=== PATIENT | male | born 1955 | race Caucasian/White ===

== ENCOUNTER 2024-04-02 23:32 | Inpatient (IN) | payer BC, MEDICARE ==
[~2024-04-02] VITALS: Ht 175.3 cm; Wt 109.7 kg
[~2024-04-02 23:32] MED LIST: ASPI1TAB20 PO; BENA20TA12 PO; CARV3.1240 PO; FLUT500M2 INH; METF-370 PO; PANT40TA2 PO; SITA100T7 PO
[2024-04-03] VITALS (23 sets, daily range): BP systolic 103–125; BP diastolic 41–80; PULSE 71–105; RESP 16–30; TEMP 97.7–98.6; O2SAT 93–100
[2024-04-03 00:03] LABS: Basophils # (auto) 0.1 10 ^3/uL (0-0.2); Eosinophils # (auto) 0.2 10 ^3/uL (0-0.8); Eosinophils % (auto) 1.7 % (0.0-7.0); Neutrophils # (auto) 6.5 10 ^3/uL (1.6-8.6); Red Blood Cells 4.11 10^6/uL (4.5-5.90)
[2024-04-03 00:04] LABS: Basophils % (auto) 1.5 % (0.0-2.0); Lymphocytes # (auto) 1.2 10 ^3/uL (0.4-5.4); Lymphocytes % (auto) 13.9 % (10.0-50.0); Mean Corpuscular Hemoglobin 16.5 pg (28.0-32.0); Mean Corpuscular Hgb Conc. 29.5 g/dL (32.0-36.0); Mean Corpuscular Volume 56.1 fL (80.0-100.0); Monocytes # (auto) 0.9 10 ^3/uL (0-1.3); Monocytes % (auto) 10.5 % (0.0-12.0); Neutrophils % (auto) 72.4 % (37.0-80.0); Nucleated Red Blood Cells % 0.1 %; Platelet Count (auto) 274 10^3/uL (140-450)
[2024-04-03 00:06] LABS: Red Cell Distribution Width 20.8 % (11.8-14.3)
[2024-04-03 00:07] LABS: Hemoglobin 6.8 g/dL (13.5-17.5)
--- NOTE | 2024-04-03 00:07 | ED.PDOC ---
History of Present Illness HPI Comments 68 y/o M is BIBA for c/o shortness of breath and wheezing for the past 3x days, today. Per EMS report, patient endorses on unprovoked onset of progressively worsening symptoms. He was noted to have been found with wheezing to his bilateral lower holley and was given DuoNeb breathing treatment en route. Ambreen corrales has a history of AFIB, COPD, DMII, HTN, MRSA, obesity, and sepsis with pneumonia secondary to methicillin-resistant Staphylococcus aureus. He denies having any chest pain, cough, fever, chills, or other associated symptoms or modifiers at this time. Chief Complaint: Shortness of Breath Time Seen by MD: 23:45 Reviewed Notes: Nurses Notes, Enterprise Services Manager Notes, Medications, Allergies Allergies: Coded Allergies: Tetracycline (Unverified Allergy, Unknown, 05/18/15) Home Meds Reported Medications Fluticasone-Salmeterol (Advair Diskus 500/50) 1 Puff Ih, 1 PUFF INH BID, #1 INHALER 5 Refills 05/18/15 Sitagliptin Phosphate (Januvia) 100 Mg Tab, 1 TAB PO DAILY, #30 TAB 5 Refills 05/18/15 Pantoprazole Sodium Sesquihydr (Protonix) 40 Mg Tab, 40 MG PO DAILY, #30 TAB 05/18/15 Metformin Hydrochloride (Metformin Hcl) 500 Mg Tab, 1 TAB PO BID, #60 TAB 3 Refills 05/18/15 Carvedilol (Carvedilol) 3.125 Mg Tab, 1 TAB PO BID, #60 TAB 3 Refills 05/18/15 Benazepril & Hydrochlorothiazi (Benazepril Hcl/Hydrochlor) 1 Tab Tab, 1 TAB PO DAILY, #30 TAB 5 Refills 05/18/15 Aspirin (Aspir-81) 81 Mg Tab, 1 TAB PO DAILY, #30 TAB 5 Refills 05/18/15 Information Source: Patient, Emergency Med Personnel Mode of Arrival: EMS Severity: Moderate Timing: Days Duration: Since onset Prehospital treatment: 12 Lead EKG, 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 Obesity. Hyponatremia. MRSA. Surgical History (Other): surgery on right hip and 1st digit on left foot Family History Family History: Unknown Social History Smoker: Non-Smoker Alcohol: Denies ETOH Use Drugs: Denies Drug Use Lives In: Home Respiratory: reports: shortness of breath, wheezing All Other Systems: Reviewed and Negative (negative unless otherwise stated above or in HPI) Physical Exam General Appearance: Mild Distress, Obese HEENT: Normal ENT Inspection, Pharynx Normal, TMs Normal Neck: Full Range of Motion, Non-Tender, Normal, Normal Inspection Respiratory: Chest Non-Tender, Lungs Clear, No Accessory Muscle Use, Normal Breath Sounds, Respiratory Distress Cardiovascular: No Edema, No JVD, No Murmur, No Gallop, Normal Peripheral Pulses, Regular Rate/Rhythm Breast Exam: Deferred Gastrointestinal: No Organomegaly, Non Tender, No Pulsatile Mass, Normal Bowel Sounds, Soft Genitalia: Deferred Pelvic: Deferred Rectal: Deferred Extremities: No calf tenderness, Normal capillary refill, Normal inspection, Normal range of motion, Non-tender, No pedal edema Musculoskeletal : Apperance: Normal Neurologic: Alert, 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 Was a procedure done?: No EKG EKG : Pulse Rate (adult): 73 Stendal: Normal Cardiac Rhythm: Afib Block: None Hypertrophy: None ST: Normal Differential Dx Considerations may include: URI, viral syndrome, PE, pleural effusion, COPD exacerbation X-Ray, Labs, Meds, VS Vital Signs Date Time Temp Pulse Resp B/P (MAP) Pulse Ox O2 Delivery O2 Flow Rate FiO2 04/03/24 00:56 98.6 96 22 110/53 (72) 93 98.6 04/03/24 00:08 16 98 Nasal Cannula* 2 28 04/03/24 00:07 73 04/02/24 23:48 98.3 72 18 123/70 (87) 100 04/02/24 23:35 73 Lab Test 04/02/24 23:40 Range/Units White Blood Count 9.0 4.4-10.8 10^3/uL Red Blood Count 4.11 L 4.5-5.90 10^6/uL Hemoglobin 6.8 *L 13.5-17.5 g/dL Hematocrit 23.0 L 41.0-53.0 % Mean Corpuscular Volume 56.1 L 80.0-100.0 fL Mean Corpuscular Hemoglobin 16.5 L 28.0-32.0 pg Mean Corpuscular Hemoglobin Concent 29.5 L 32.0-36.0 g/dL Red Cell Distribution Width 20.8 H 11.8-14.3 % Platelet Count 274 140-450 10^3/uL Mean Platelet Volume 8.2 6.9-10.8 fL Neutrophils (%) (Auto) 72.4 37.0-80.0 % Lymphocytes (%) (Auto) 13.9 10.0-50.0 % Monocytes (%) (Auto) 10.5 0.0-12.0 % Eosinophils (%) (Auto) 1.7 0.0-7.0 % Basophils (%) (Auto) 1.5 0.0-2.0 % Neutrophils # (Auto) 6.5 1.6-8.6 10 ^3/uL Lymphocytes # (Auto) 1.2 0.4-5.4 10 ^3/uL Monocytes # (Auto) 0.9 0-1.3 10 ^3/uL Eosinophils # (Auto) 0.2 0-0.8 10 ^3/uL Basophils # (Auto) 0.1 0-0.2 10 ^3/uL Nucleated Red Blood Cells 0.1 % Platelet Estimate Adequate Hypochromasia (manual) Marked Poikilocytosis (manual) Slight Anisocytosis (manual) Slight Microcytosis Marked Target Cells Few Ovalocytes Few Sodium Level 132 L 136-145 mmol/L Potassium Level 4.6 3.5-5.1 mmol/L Chloride Level 101 98-107 mmol/L Carbon Dioxide Level 24 20-31 mmol/L Anion Gap 7 5-15 Blood Urea Nitrogen 20 9-23 mg/dL Creatinine 1.19 0.700-1.30 mg/dL Glomerular Filtration Rate Calc 66 >90 mL/min BUN/Creatinine Ratio 16.8 10.0-20.0 Serum Glucose 128 H 74-106 mg/dL Calcium Level 9.3 8.7-10.4 mg/dL Total Bilirubin 0.9 0.2-1.0 mg/dL Aspartate Amino Transferase (AST) < 8 L 13-40 U/L Alanine Aminotransferase (ALT) 11 7-40 U/L Alkaline Phosphatase 67 46-116 U/L Troponin I High Sensitivity < 3 L </=54 ng/L B-Type Natriuretic Peptide 232.88 0-100 pg/mL Total Protein 6.5 5.7-8.2 g/dL Albumin 4.3 3.2-4.8 g/dL Current Medications Medications (Trade) Dose Ordered Sig/Héctor Route Start Time Stop Time Status Last Admin Albuterol (Ventolin Medneb) 5 mg ONCE ONCE NEB 04/03/24 00:00 04/03/24 00:01 DC 04/03/24 00:08 Ipratropium [place] (Atrovent Medneb) 0.5 mg ONCE ONCE NEB 04/03/24 00:00 04/03/24 00:01 DC 04/03/24 00:08 Prednisone 40 mg ONCE ONCE PO 04/03/24 00:00 04/03/24 00:01 DC 04/03/24 00:59 Time of 1ST Reevaluation: 00:15 Reevaluation 1ST: Unchanged Time of 2ND Reevaluation: 01:06 Reevaluation 2ND: Unchanged Patient Education/Counseling: Diagnosis, Treatment Family Education/Counseling: No Family Present Departure 1 Departure Time of Disposition: 01:06 Impression: Primary Impression: COPD exacerbation Additional Impressions: Lung mass Symptomatic anemia Atrial fibrillation Disposition: ADMITTED INPATIENT Admit to: [facility] Condition: Guarded Discharged With: Self Comments Shortness of Breath with Severe Anemia Chief Complaint: Shortness of breath History of Present Illness: 68-year-old male with history of COPD and atrial fibrillation presents via EMS with complaints of shortness of breath. Patient is currently only on aspirin for his atrial fibrillation. Initial evaluation revealed wheezing on examination, and patient received a breathing treatment with partial improvement. Laboratory studies were notable for severe anemia with hemoglobin of 6.8 g/dL and hematocrit of 23%. Of note, patient has a previous history of MRSA pneumonia. Review of Systems: Respiratory: Positive for shortness of breath and wheezing All other systems reviewed and negative Medications: Aspirin (dosage not specified) Allergies: No known allergies documented Past Medical History: 1. Chronic Obstructive Pulmonary Disease (COPD) 2. Atrial Fibrillation 3. Previous MRSA Pneumonia Physical Exam: Respiratory: Wheezing noted on examination Lab Results: CBC: - Hemoglobin: 6.8 g/dL (Critical) - Hematocrit: 23% (Critical) Other Studies: - Troponin: Normal - BNP: Normal Imaging and Other Relevant Results: No imaging results documented Medical Decision Making: Summary Statement: 68-year-old male with COPD and atrial fibrillation presenting with shortness of breath, found to have severe anemia requiring admission. Problem List: 1. Severe anemia (Hgb 6.8) 2. Acute shortness of breath with wheezing 3. History of MRSA pneumonia 4. COPD 5. Atrial fibrillation on aspirin only Differential Diagnosis: 1. Acute blood loss anemia 2. COPD exacerbation 3. Community-acquired pneumonia 4. Healthcare-associated pneumonia 5. Acute coronary syndrome ED Course: Patient received breathing treatment with partial improvement. Labs revealed severe anemia. After shared decision-making discussion, patient agreed to hospital admission. Plan for blood transfusion and empiric antibiotic coverage with Rocephin and azithromycin initiated. Assessment and Plan: 1. Severe Anemia (Hgb 6.8, Hct 23%) - Admit to hospital for further evaluation and management - Will require blood transfusion - Further workup needed to determine etiology 2. Acute Shortness of Breath/Possible Pneumonia - Started on IV Rocephin and azithromycin given history of MRSA pneumonia - Continue bronchodilator treatments as needed 3. COPD - Continue home medications - Monitor oxygen requirements 4. Atrial Fibrillation - Continue aspirin - Will need evaluation of anticoagulation strategy during admission Billing Information: ICD-10: D64.9 - Anemia, unspecified ICD-10: R06.02 - Shortness of breath ICD-10: J44.1 - COPD with acute exacerbation ICD-10: I48.91 - Unspecified atrial fibrillation Critical Care Note Critical Care Time?: Yes (35 min-critical care time only) Critical care comment: Total critical care time: Approximately 36 minutes Due to a high probability of clinically significant, life threatening deterioration, the patient required my highest level of preparedness to intervene emergently and I personally spent this critical care time directly and personally managing the patient. This critical care time included obtaining a history; examining the patient; pulse oximetry; ordering and review of studies; arranging urgent treatment with development of a management plan; evaluation of patient's response to treatment; frequent reassessment; and, discussions with other providers. This critical care time was performed to assess and manage the high probability of imminent, life-threatening deterioration that could result in multi-organ failure. It was exclusive of separately billable procedures and treating other patients. Stability Stability form required: No Heart Score Heart Score: Heart Score Response (Comments) Value History Moderate Suspicious 1 EKG Repolarization Disturb 1 Age >65 2 Risk Factors >3 or Hx ASHD 2 Troponin Normal limit 0 Total 6 I personally scribed for PERRY APONTE MD ([email or web address]) on 04/03/24 at 00:07. Electronically submitted by Armando Sandoval [email or web address]). PERRY APONTE MD Apr 03, 2024 00:07
[2024-04-03] MEDS: ALBUTEROL SULF 2.5 MG/0.5ML(0.5%) NEB SOLN NEB ONE (00:08)
[2024-04-03] MEDS: IPRATROPIUM BROM 0.5 MG/2.5ML INH SOL NEB ONE (00:08)
[2024-04-03 00:21] LABS: Alanine Aminotransferase 11 U/L (7-40); Albumin 4.3 g/dL (3.2-4.8); Alkaline Phosphatase 67 U/L (46-116); Anion Gap 7 (5-15); BUN/Creatinine Ratio 16.8 (10.0-20.0); Bilirubin, Total 0.9 mg/dL (0.2-1.0); Blood Urea Nitrogen 20 mg/dL (9-23); Calcium 9.3 mg/dL (8.7-10.4); Carbon Dioxide 24 mmol/L (20-31); Chloride 101 mmol/L (98-107); Potassium 4.6 mmol/L (3.5-5.1)
[2024-04-03 00:22] LABS: Total Protein 6.5 g/dL (5.7-8.2)
[2024-04-03 00:23] LABS: Aspartate Aminotransferase < 8 U/L (13-40); Glucose 128 mg/dL (74-106); Sodium 132 mmol/L (136-145)
[2024-04-03 00:54] LABS: Anisocytosis Slight; Hypochromia Marked; Ovalocytes FEW; Platelet Estimate Adequate; Target Cell FEW
[2024-04-03] MEDS: predniSONE 20 MG TAB PO ONE (00:59)
--- NOTE | 2024-04-03 01:14 | DVH ---
CHEST RADIOGRAPH Indication: SOB Technique: Single frontal view of the chest was obtained COMPARISON: None FINDINGS: Lines and Tubes: None Lungs: Clear Pleura: No effusion. No pneumothorax. Cardiomediastinal contours: Unremarkable Bones: Unremarkable IMPRESSION: 1. No acute disease.
[2024-04-03] MEDS: cefTRIAXone 1GM/50ML D5W 50 ML IV ONE (01:27)
[2024-04-03] MEDS: AZITHROMYCIN 500MG/ 250ML 250 ML IV ONE (01:55)
[2024-04-03] MEDS ORDERED: MORPHINE SULFATE INJ 2 MG/ml SYRG IV PRN (02:00)
[2024-04-03] MEDS ORDERED: NITROGLYCERIN 0.4 MG SL TAB SL PRN (02:00)
[2024-04-03] MEDS ORDERED: DEXTROSE (50%) 50ML SYRG IV PRN (02:00)
[2024-04-03 02:31] LABS: Folate (Folic Acid) 13.19 ng/mL (>5.38)
[2024-04-03 02:32] LABS: Ferritin 3.1 ng/mL (22-322)
[2024-04-03 02:48] LABS: % Iron Saturation 3.6 % (20-55)
[2024-04-03 03:03] LABS: Urine Bacteria None Seen /hpf (None Seen)
[2024-04-03 03:22] LABS: Urine Blood Negative /uL (Negative); Urine Clarity Clear (Clear); Urine Color Light-Yellow (Yellow); Urine Protein, UAD Negative (Negative); Urine Specific Gravity 1.015 (1.001-1.035); Urine Squamous Epithelial Cell FEW /hpf (<5); Urine Urobilinogen Normal (Negative); Urine WBC 1 /HPF (0-3); Urine pH 5.5 (5.0-9.0)
[2024-04-03 04:22] LABS: Opiate Scree,Urine Neg (NEGATIVE)
[2024-04-03] MEDS: IRON SUCROSE COMPLEX 110 ML IV SCH (04:26)
[2024-04-03 04:31] LABS: Basophils # (auto) 0 10 ^3/uL (0-0.2); Basophils % (auto) 0.5 % (0.0-2.0); Eosinophils # (auto) 0 10 ^3/uL (0-0.8); Monocytes # (auto) 0.2 10 ^3/uL (0-1.3); Neutrophils # (auto) 7.6 10 ^3/uL (1.6-8.6)
[2024-04-03 04:33] LABS: Alanine Aminotransferase 13 U/L (7-40); Alkaline Phosphatase 72 U/L (46-116); Anion Gap 9 (5-15); Calcium 9.4 mg/dL (8.7-10.4); Carbon Dioxide 23 mmol/L (20-31); Chloride 98 mmol/L (98-107)
[2024-04-03 04:34] LABS: Albumin 4.5 g/dL (3.2-4.8); Total Protein 6.8 g/dL (5.7-8.2)
[2024-04-03 04:37] LABS: Eosinophils % (auto) 0.5 % (0.0-7.0); Hematocrit 24.3 % (41.0-53.0); Hemoglobin 7.2 g/dL (13.5-17.5); Lymphocytes # (auto) 0.6 10 ^3/uL (0.4-5.4); Lymphocytes % (auto) 7.4 % (10.0-50.0); Mean Corpuscular Hemoglobin 16.6 pg (28.0-32.0); Mean Corpuscular Hgb Conc. 29.5 g/dL (32.0-36.0); Mean Corpuscular Volume 56.4 fL (80.0-100.0); Monocytes % (auto) 2.6 % (0.0-12.0); Platelet Count (auto) 301 10^3/uL (140-450); Red Blood Cells 4.32 10^6/uL (4.5-5.90); White Blood Cell 8.6 10^3/uL (4.4-10.8)
[2024-04-03 04:38] LABS: Red Cell Distribution Width 20.6 % (11.8-14.3)
[2024-04-03 04:49] LABS: INR 1.24 (0.9-1.15); Prothrombin Time 12.9 sec (9.3-11.8)
[2024-04-03 04:52] LABS: Aspartate Aminotransferase < 8 U/L (13-40); Glucose 184 mg/dL (74-106); Sodium 130 mmol/L (136-145)
[2024-04-03 04:53] LABS: Amphetamine Screen, Urine Neg (NEGATIVE); Barbiturate Scree,Urine Neg (NEGATIVE); Benzodiazephine Screen, Urine Neg (NEGATIVE); Cannabinoid Screen, Urine Neg (NEGATIVE); Cocaine Screen, Urine Neg (NEGATIVE); Phencyclidine Screen, Urine Neg (NEGATIVE)
--- NOTE | 2024-04-03 05:03 | DVHHPRES ---
History of Present Illness Resident Creating Document: LISY SANCHEZ RESIDENT Reason for Visit: acute respiratory failure and anemia History of Present Illness 68-year-old male with past medical history AFib COPD diabetes mellitus type 2 hypertension came for a shortness of breath and cough with greenish sputum for 3 days. Patient states using oxygen 2 L at home but due to the shortness of breath he has been using his oxygen 4 L yesterday. Patient was also found wheezing at admission. Patient denies any weight loss and bleeding in any other symptoms Home meds Advair Diskus sitagliptin pantoprazole metformin carvedilol benazepril plus hydrochlorothiazide aspirin Patient stated being heavy smoker but quit 7 years ago, denies other drugs states a drink once in a while Review of Systems Constitutional: Yes: Weakness; No: Fever, Chills, Sweats, Malaise, Other Eyes: No: Pain, Vision change, Conjunctivae inflammation, Eyelid inflammation, Other, Redness ENT: No: Ear pain, Ear discharge, Nose pain, Nose discharge, Nose congestion, Mouth pain, Mouth swelling, Throat pain, Throat swelling, Other Respiratory: Cough, Shortness of breath, Wheezing, Sputum; No: Dry, SOB with excertion, Hemoptysis, Pleuritic Pain, Wheezing, Other Cardiovascular: No: Chest Pain, Palpitations, Orthopnea, Paroxysmal Noc. Dyspnea, Edema, Lt Headedness, Other Gastrointestinal: No: Nausea, Vomiting, Abdominal Pain, Diarrhea, Constipation, Melena, Hematochezia, Other Genitourinary: No Dysuria, No Frequency, No Incontinence, No Hematuria, No Retention, No Other Musculoskeletal: No: other, neck pain, shoulder pain, arm pain, back pain, hand pain, leg pain, foot pain Skin: No: Rash, Lesions, Jaundice, Bruising, Other Neurological: No: Weakness, Numbness, Incoordination, Change in speech, Confusion, Seizures, Other Allergies: Coded Allergies: Tetracycline (Unverified Allergy, Unknown, 05/18/15) Medications Current Medications Medications Dose Ordered Sig/Héctor Route Start Time Stop Time Status Last Admin Dose Admin Nitroglycerin 0.4 mg Q5MINP PRN SL 04/03/24 02:00 Morphine Sulfate 2 mg Q30M PRN IV 04/03/24 02:00 Azithromycin 250 ml @ 125 mls/hr DAILY IV 04/03/24 10:00 UNV Ceftriaxone Sodium 50 ml @ 100 mls/hr DAILY@0100 IV 04/04/24 01:00 Prednisone 40 mg DAILY PO 04/03/24 10:00 Albuterol 5 mg TIDPRN PRN NEB 04/03/24 06:00 Ipratropium [place] 0.5 mg TIDPRN PRN NEB 04/03/24 06:00 Carvedilol 3.125 mg BID PO 04/03/24 10:00 Diagnostic Test (Pha) 1 strip ACHS 04/03/24 07:00 Insulin Human Regular ACHS SC 04/03/24 07:00 Dextrose 50 ml UD PRN IV 04/03/24 02:00 Iron Sucrose 110 ml @ 110 mls/hr DAILY@1200 IV 04/03/24 03:30 04/06/24 12:59 Exam Vital Signs Vital Signs Date Time Temp Pulse Resp B/P (MAP) Pulse Ox O2 Delivery O2 Flow Rate FiO2 04/03/24 03:00 98.6 85 22 110/53 94 2.0 28 98.6 04/03/24 01:01 Nasal Cannula* General Appearance: Alert, Oriented X3 HEENT: Atraumatic, Other (pale) Respiratory: Clear to auscultation, Normal air movement Cardiovascular: Other (irregular rate ) Abdominal: Normal bowel sounds, Soft, Other (rectal exam, no stool in the recatl vault, no bleeding ) Extremities: No clubbing, No cyanosis Skin: No rashes, No breakdown Neuro: Normal gait, Normal speech Psych/Mental Status: Mental status NL, Mood NL Labs/Xrays Labs Test 04/03/24 03:57 04/03/24 03:00 04/03/24 01:24 04/02/24 23:40 Range/Units White Blood Count 8.6 4.4-10.8 10^3/uL Red Blood Count 4.32 L 4.5-5.90 10^6/uL Hemoglobin 7.2 L 13.5-17.5 g/dL Hematocrit 24.3 L 41.0-53.0 % Mean Corpuscular Volume 56.4 L 80.0-100.0 fL Mean Corpuscular Hemoglobin 16.6 L 28.0-32.0 pg Mean Corpuscular Hemoglobin Concent 29.5 L 32.0-36.0 g/dL Red Cell Distribution Width 20.6 H 11.8-14.3 % Platelet Count 301 140-450 10^3/uL Mean Platelet Volume 8.4 6.9-10.8 fL Neutrophils (%) (Auto) 89.0 H 37.0-80.0 % Lymphocytes (%) (Auto) 7.4 L 10.0-50.0 % Monocytes (%) (Auto) 2.6 0.0-12.0 % Eosinophils (%) (Auto) 0.5 0.0-7.0 % Basophils (%) (Auto) 0.5 0.0-2.0 % Neutrophils # (Auto) 7.6 1.6-8.6 10 ^3/uL Lymphocytes # (Auto) 0.6 0.4-5.4 10 ^3/uL Monocytes # (Auto) 0.2 0-1.3 10 ^3/uL Eosinophils # (Auto) 0 0-0.8 10 ^3/uL Basophils # (Auto) 0 0-0.2 10 ^3/uL Nucleated Red Blood Cells 0.0 % Reticulocyte Count (auto) 1.82 H 0.5-1.5 % Urine Color Light-yellow Yellow Urine Clarity Clear Clear Urine pH 5.5 5.0-9.0 Urine Specific [place] 1.015 1.001-1.035 Urine Protein Negative Negative Urine Ketones Negative Negative Urine Blood Negative Negative /uL Urine Nitrite Negative Negative Urine Bilirubin Negative Negative Urine Urobilinogen Normal Negative mg/dL Urine Leukocyte Esterase Negative Negative /uL Urine RBC 1 0 - 3 /hpf Urine Microscopic WBC 1 0-3 /HPF Urine Squamous Epithelial Cells Few <5 /hpf Urine Bacteria None seen None Seen /hpf Urine Glucose Normal Normal mg/dL Lactic Acid Level 1.2 0.4-2.0 mmol/L Iron Level 15 L 65-175 ug/dL Total Iron Binding Capacity 421 250-425 ug/dL Percent Iron Saturation 3.6 L 20-55 % Ferritin 3.1 L 22-322 ng/mL Lactate Dehydrogenase 165 120-246 U/L Vitamin B12 Level 494 211-911 pg/mL Folic Acid 13.19 >5.38 ng/mL Platelet Estimate Adequate Hypochromasia (manual) Marked Poikilocytosis (manual) Slight Anisocytosis (manual) Slight Microcytosis Marked Target Cells Few Ovalocytes Few Troponin I High Sensitivity < 3 L </=54 ng/L B-Type Natriuretic Peptide 232.88 0-100 pg/mL Assessment/Plan Assessment/Plan #Acute respiratory failure: home 2 LT today 4 LT #Severe anemia #Rule out bleeding #Iron deficiency anemia #Possible COPD exacerbation #HTN #AFIB with normal RVR Chadvsc3 #DM type 2 #GARRISON? #Mild Hyperkalemia #Mild Hyponatremia Admit Telemetry 1 RBC Iron IV Ceftriaxone + azithromycin Breathing treatments PRN ECHO ordered Hold on anticoagulation for now due to anemia Mild sliding scale Case discussed with Dr Eli Time spent on care 23 min Plan discussed with: Patient, Other (rn) My Orders Orders - LISY SANCHEZ RESIDENT Procedure Category Date Status Time Type And Screen BBK 04/03/24 In Process 01:39 Admit ADMIT 04/03/24 Transmitted 01:46 Nitroglycerin PHA 04/03/24 In Process Sublingual (Ntrostat 02:00 Morphine Sulfate PHA 04/03/24 In Process Injection 02:00 Oxygen By Nasal RT 04/03/24 Transmitted Cannula 01:46 Stat Ekg For Chest COY 04/03/24 In Process Pain 01:46 Notify Md Of Changes COY 04/03/24 In Process From Base 01:46 Lead Network Architect For COY 04/03/24 In Process 24 Hours 01:46 Emergency Dysrhythmia COY 04/03/24 In Process Protocol 01:46 Rhythm Strips Once COY 04/03/24 In Process Every Shift 01:46 Pulse Ox Cont Per Day RT 04/03/24 Logged 01:46 Prothrombin Time W/ LAB 04/03/24 In Process INR 04:00 Fibrinogen LAB 04/03/24 In Process 04:00 Vital Signs COY 04/03/24 In Process 01:46 Administer Blood COY 04/03/24 In Process Products 01:46 Azithromycin 500mg/ PHA 04/03/24 Pending 250ml (Zithromax 50 10:00 Prednisone Tablet PHA 04/03/24 In Process 10:00 Albuterol Medneb PHA 04/03/24 In Process (Ventolin Medneb) 06:00 Ipratropium Medneb PHA 04/03/24 In Process (Atrovent Medneb) 06:00 Mrsa Screen DELBERT 04/03/24 Logged 01:51 Consistent DIET 04/03/24 Transmitted Carb(Ccho)Diabetes Breakfast Carvedilol Tablet PHA 04/03/24 In Process (Coreg Tablet) 10:00 Glucose Blood PHA 04/03/24 In Process (Accu-Chek Comfort 07:00 Insulin R (Human) PHA 04/03/24 In Process (Insulin R) 07:00 Dextrose 50% Syringe PHA 04/03/24 In Process 02:00 Stool Occult Blood LAB 04/03/24 Logged 02:02 Echo 2d Mode Cardiac US 04/03/24 Logged DOP 02:02 Ceftriaxone 1gm/50ml PHA 04/04/24 In Process D5w (Rocephin) 01:00 Iron Sucrose Complex PHA 04/03/24 In Process (Venofer) 03:30 Thyroid Stimulating LAB 04/03/24 In Process Hormone 03:25 Hemoglobin A1c LAB 04/03/24 In Process 03:25 Comprehensive LAB 04/03/24 In Process Metabolic Panel 03:25 Drug Screen LAB 04/03/24 In Process 03:25 Covid19 Antigen Jessica LAB 04/03/24 Logged Rapid Influenza A&B LAB 04/03/24 Logged 03:25 Date of Service: Apr 03, 2024 Billing Provider: TRACE ELI MD Common Visit Codes: [id number] INP/OBS CARE (HIGH) Secondary Visit Codes: [id number] CARE PLAN 30 MINUTES LISY SANCHEZ RESIDENT Apr 03, 2024 05:03 TRACE ELI MD Apr 03, 2024 19:59
[2024-04-03] MEDS: IPRATROPIUM BROM 0.5 MG/2.5ML INH SOL NEB PRN (05:31)
[2024-04-03] MEDS: ALBUTEROL SULF 2.5 MG/0.5ML(0.5%) NEB SOLN NEB PRN (05:31)
--- NOTE | 2024-04-03 06:44 | ECG ---
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
[2024-04-03 06:56] LABS: BUN/Creatinine Ratio 16.2 (10.0-20.0); Blood Urea Nitrogen 21 mg/dL (9-23)
[2024-04-03] MEDS: InsuLIN REG 1unit/0.01ml Soln (100units/ml) SC SCH (06:56)
[2024-04-03] MEDS: ACCU-CHEK COMFORT CURVE STRIP VI SCH (06:58)
[2024-04-03 07:58] LABS: COVID19 ANTIGEN SOFIA FIA NEGATIVE (NEGATIVE)
[2024-04-03 08:11] LABS: Rapid Influenza B Negative (Negative)
[2024-04-03 08:12] LABS: Rapid Influenza A Positive (Negative)
[2024-04-03] MEDS: predniSONE 20 MG TAB PO SCH (10:16)
[2024-04-03] MEDS: AZITHROMYCIN 500MG/ 250ML 250 ML IV SCH (10:19)
[2024-04-03] MEDS: CARVEDILOL 3.125 MG TAB PO SCH (10:21)
--- NOTE | 2024-04-03 12:41 | DVH ---
Procedure: CT CHEST WITHOUT CONTRAST Reason for study/Clinical History: SOB Comparison Study: None available at time of dictation. Exam Date: 04/03/2024 10:56 AM TECHNIQUE: Multidetector CT of the chest was performed from the lung apices to the upper abdomen with out the use of intravenous contract. Axial, coronal and sagittal multiplanar reformats were performed . Radiation Dose Information: CT Dose: CTDI volume is 25.32 mGy. Dose-length product is 940.67 mGy*cm The dose indicators for CT are the volume Computed Tomography (CT) Dose Index (CTDIvol) and the Dose Length Product (DLP), and are measured in units of mGy and mGy-cm, respectively. These indicators are not patient dose, but values generated from the CT scanner acquisition factors. The report includes radiation exposure data for exposures received during this examination. FINDINGS: Lower neck: Normal thyroid. Lungs: No focal consolidation, pleural effusion or pneumothorax. Heart/Vascular Structures: Cardiomegaly. Coronary artery calcifications. Vascular calcifications of t he aorta. Lymph Nodes: No adenopathy Pleura: No pleural effusion or significant pneumothorax. Musculoskeletal: No acute osseous abnormality. Degenerative changes of the spine. Soft tissues: Normal. Upper abdomen: Limited portions of the upper abdomen are unremarkable. IMPRESSION: No acute intrathoracic abnormality. Radiation optimization: All CT scans at this facility use at least one of these dose optimization kedar hniques: automated exposure control mA and/or kV adjustment per patient size (includes targeted exam s where dose is matched to clinical indication) or iterative reconstruction.
--- NOTE | 2024-04-03 16:13 | DVHPNRES ---
Progress Note Date Seen: Apr 03, 2024 Resident Creating Document: MIKY COATS RESIDENT Medical Necessity Reason Pt with a Central, PICC or Fol: No Subjective Review of Systems Patient is a 68-year-old male with past medical history of COPD on home oxygen 2 L, atrial fibrillation, diabetes, hypertension, questionable CHF, who comes in due to shortness of breath that has been ongoing for the last 3 days. According to the patient, yesterday all day he experienced dyspnea, he tried using his nebulizer and home oxygen, however, did not help. Patient notes he had worsening shortness of breath and orthopnea which is what prompted this visit to the hospital. Patient also notes having increasing cough productive of yellowish sputum. Per patient he was treated for pneumonia in January and also has a history of MRSA pneumonia 6 years ago. In the ER patient was noted to have a hemoglobin of 6.8. Patient received 1 PRBC transfusion. Patient [place] positive for influenza B. Past surgical history: Right hip replacement surgery Social & Personal history: Lives with . Quit smoking 7 years ago, prior to that was smoking 2 packs per day for 40 years. Drinks alcohol once or twice per week, remote history of heavy alcohol use. Denies using any drugs. Allergies: Patient seen and examined at bedside. Patient is alert and oriented to time, place person and responding to all questions. General: Fatigue Eyes: No Pain, No Vision change, No Conjunctivae inflammation, No Eyelid inflammation, No Other, No Redness ENT: No Ear pain, No Ear discharge, No Nose pain, No Nose discharge, No Nose congestion, No Mouth pain, No Mouth swelling, No Throat pain, No Throat swelling, No Other Cardiovascular: No Chest Pain, No Palpitations, No Orthopnea, No Paroxysmal No Dyspnea, No Edema, No Lt Headedness, No Other Respiratory: Productive Cough, No Dry, Shortness of breath, SOB with exertion, No Wheezing, No Hemoptysis, No Pleuritic Pain, No Sputum, No Other Gastrointestinal: No Nausea, No Vomiting, No Abdominal Pain, No Diarrhea, No Constipation, No Melena, No Hematochezia, No Other Genitourinary: No Dysuria, No Frequency, No Incontinence, No Hematuria, No Retention, No Other Musculoskeletal: No other, No neck pain, No shoulder pain, No arm pain, No back pain, No hand pain, No leg pain, No foot pain Skin: No Rash, No Lesions, No Jaundice, No Bruising, No Other Objective vital signs Vital Sign Date Time Temp Pulse Resp B/P (MAP) Pulse Ox O2 Delivery O2 Flow Rate FiO2 04/03/24 15:13 105 22 122/66 (84) 96 04/03/24 09:16 Nasal Cannula* 2 28 04/03/24 09:15 97.9 97.9 Total Intake and Output 04/02/24 04/02/24 04/03/24 15:00 23:00 07:00 Intake Total 600 ml Output Total 0 ml Balance 600 ml medications Current Medications Medications Dose Ordered Sig/Héctor Route Start Time Stop Time Status Last Admin Dose Admin Nitroglycerin 0.4 mg Q5MINP PRN SL 04/03/24 02:00 Morphine Sulfate 2 mg Q30M PRN IV 04/03/24 02:00 Azithromycin 250 ml @ 125 mls/hr DAILY IV 04/03/24 10:00 04/03/24 10:19 125 MLS/HR Ceftriaxone Sodium 50 ml @ 100 mls/hr DAILY@0100 IV 04/04/24 01:00 Prednisone 40 mg DAILY PO 04/03/24 10:00 04/03/24 10:16 40 MG Albuterol 5 mg TIDPRN PRN NEB 04/03/24 06:00 04/03/24 10:23 5 MG Ipratropium [place] 0.5 mg TIDPRN PRN NEB 04/03/24 06:00 04/03/24 10:23 0.5 MG Carvedilol 3.125 mg BID PO 04/03/24 10:00 04/03/24 10:21 3.125 MG Diagnostic Test (Pha) 1 strip ACHS 04/03/24 07:00 04/03/24 11:30 1 STRIP Insulin Human Regular ACHS SC 04/03/24 07:00 04/03/24 11:30 3 UNITS Dextrose 50 ml UD PRN IV 04/03/24 02:00 Iron Sucrose 110 ml @ 110 mls/hr DAILY@1200 IV 04/03/24 03:30 04/06/24 12:59 04/03/24 12:38 110 MLS/HR Examination General Appearance: Cooperative. Well developed. Well nourished. NAD Head Exam: Normal inspection Neck Exam: Normal inspection. Non-tender. Normal alignment Pulmonary/Respiratory: Chest non-tender. Clear bilateral breath sounds, c rackles, trace wheezing. Cardiovascular/Chest: Regular rate and rhythm. No murmurs. No JVD. Peripheral Pulses: 2+ Radial (R). 2+ Radial (L). 2+ Pedal (R). 2+ Pedal (L) Abdominal Exam: Normal bowel sounds. Soft. normal abdomen, no visible veins, Nontender. No hepatospenomegaly. No masses Ankle Exam: Negative ankle edema Lower extremities: Negative lower extremity edema Neuro/Mental Status: A&O x4. Coherent. Thoughts/Psych: Normal thought pattern. Appropriate mood and affect. Good judgement and insight Skin Exam: Normal inspection. Normal color. Warm. Dry laboratory and microbiology Laboratory Tests 04/03/24 03:57 Test 04/03/24 03:57 Range/Units Serum Glucose 184 H 74-106 mg/dL Labs and/or images reviewed: Labs reviewed by me, Image(s) reviewed by me Problem List/Assessment/Plan Problem List/Assessment/Plan Acute hypoxic respiratory failure due to influenza A infection COPD exacerbation - CXR: No acute disease - chest CT: No acute intrathoracic abnormality - IV ceftriaxone, IV azithromycin - ipratropium and levalbuterol med nebs - prednisone 40 mg p.o. daily Microcytic anemia, HB 6.8 at admission with MCV 56.4 - IV iron - s/p 1 PRBC History of atrial fibrillation Hypertension - carvedilol 3.125 mg p.o. b.i.d. - blood pressure on the softer side Type 2 diabetes, Hb A1c 7.2 - mild sliding scale insulin Goals of care: Full code, discussed for >16 minutes on 08/16/23 Plan discussed with patient Plan discussed with Dr. Fan Plan discussed with: Patient, Other (RN) My Orders My Orders Orders - MIKY COATS Procedure Category Date Status Time Ipratropium Medneb PHA 04/03/24 Verified (Atrovent Medneb) 16:15 Levalbuterol Hcl PHA 04/03/24 Verified (Xopenex Medneb) 16:15 CC Plasma Assessment Blood Product Administration S: [id number] MIKY COATS RESIDENT Apr 03, 2024 16:13
[2024-04-03] MEDS ORDERED: LEVALBUTEROL HCL 1.25 MG/3 ML NEB NEB SCH (16:15)
[2024-04-03] MEDS ORDERED: IPRATROPIUM BROM 0.5 MG/2.5ML INH SOL NEB SCH (16:15)
[2024-04-03] MEDS: IPRATROPIUM BROM 0.5 MG/2.5ML INH SOL ONE (17:44)
[2024-04-03] MEDS: LEVALBUTEROL HCL 1.25 MG/3 ML NEB ONE (17:44)
[2024-04-03] MEDS: LEVALBUTEROL HCL 1.25 MG/3 ML NEB NEB SCH (18:00)
[2024-04-03] MEDS: IPRATROPIUM BROM 0.5 MG/2.5ML INH SOL NEB SCH (18:00)
[2024-04-04] VITALS (20 sets, daily range): BP systolic 104–145; BP diastolic 59–77; PULSE 64–102; RESP 18–22; TEMP 97.6–98.3; O2SAT 91–100
[2024-04-04] MEDS ORDERED: AMLO1TAB22 PO (00:33)
[2024-04-04] MEDS ORDERED: SPIR25TA8 PO (00:35)
[2024-04-04] MEDS ORDERED: ATOR10TA PO (00:37)
[2024-04-04] MEDS: cefTRIAXone 1GM/50ML D5W 50 ML IV SCH (00:49)
[2024-04-04 06:11] LABS: Basophils # (auto) 0 10 ^3/uL (0-0.2); Basophils % (auto) 0.4 % (0.0-2.0); Eosinophils # (auto) 0 10 ^3/uL (0-0.8); Hemoglobin 8.3 g/dL (13.5-17.5); Mean Corpuscular Volume 59.3 fL (80.0-100.0); Nucleated Red Blood Cells % 0.2 %; Platelet Count (auto) 304 10^3/uL (140-450)
[2024-04-04 06:14] LABS: Hematocrit 27.7 % (41.0-53.0); Lymphocytes # (auto) 1.5 10 ^3/uL (0.4-5.4); Mean Corpuscular Hemoglobin 17.7 pg (28.0-32.0); Mean Corpuscular Hgb Conc. 29.9 g/dL (32.0-36.0); Monocytes # (auto) 0.8 10 ^3/uL (0-1.3); Monocytes % (auto) 8.1 % (0.0-12.0); Neutrophils # (auto) 7.7 10 ^3/uL (1.6-8.6); Neutrophils % (auto) 76.5 % (37.0-80.0); Red Blood Cells 4.66 10^6/uL (4.5-5.90); White Blood Cell 10.1 10^3/uL (4.4-10.8)
[2024-04-04 06:25] LABS: Anion Gap 9 (5-15); Calcium 9.7 mg/dL (8.7-10.4); Carbon Dioxide 24 mmol/L (20-31); Chloride 102 mmol/L (98-107); Potassium 4.5 mmol/L (3.5-5.1)
[2024-04-04 06:31] LABS: BUN/Creatinine Ratio 17.6 (10.0-20.0); Blood Urea Nitrogen 19 mg/dL (9-23)
[2024-04-04 06:32] LABS: Glucose 136 mg/dL (74-106); Red Cell Distribution Width 21.7 % (11.8-14.3); Sodium 135 mmol/L (136-145)
--- NOTE | 2024-04-04 17:18 | MEDREC ---
[facility] Intervention Section I [facility] Intervention: Review courses of therapy (PLEASE CONSIDER ADDING TAMIFLU FOR INFLUENZA) GAYATHRI OLMOS PHARMACIST Apr 04, 2024 17:18
--- NOTE | 2024-04-04 19:07 | DVHPNRES ---
Progress Note Date Seen: Apr 04, 2024 Resident Creating Document: MIKY COATS RESIDENT Medical Necessity Reason Pt with a Central, PICC or Fol: No Subjective Review of Systems Patient is a 68-year-old male with past medical history of COPD on home oxygen 2 L, atrial fibrillation, diabetes, hypertension, questionable CHF, who comes in due to shortness of breath that has been ongoing for the last 3 days. According to the patient, yesterday all day he experienced dyspnea, he tried using his nebulizer and home oxygen, however, did not help. Patient notes he had worsening shortness of breath and orthopnea which is what prompted this visit to the hospital. Patient also notes having increasing cough productive of yellowish sputum. Per patient he was treated for pneumonia in January and also has a history of MRSA pneumonia 6 years ago. In the ER patient was noted to have a hemoglobin of 6.8. Patient received 1 PRBC transfusion. Patient [place] positive for influenza B. Past surgical history: Right hip replacement surgery Social & Personal history: Lives with . Quit smoking 7 years ago, prior to that was smoking 2 packs per day for 40 years. Drinks alcohol once or twice per week, remote history of heavy alcohol use. Denies using any drugs. Allergies: Patient seen and examined at bedside. Patient is alert and oriented to time, place person and responding to all questions. improved sob. Objective vital signs Vital Sign Date Time Temp Pulse Resp B/P (MAP) Pulse Ox O2 Delivery O2 Flow Rate FiO2 04/04/24 16:55 98.0 102 20 117/60 (79) 92 98.0 04/04/24 10:28 Room Air* 0 21 Total Intake and Output 04/03/24 04/03/24 04/04/24 15:00 23:00 07:00 Intake Total 360 ml 330 ml 850 ml Balance 360 ml 330 ml 850 ml medications Current Medications Medications Dose Ordered Sig/Héctor Route Start Time Stop Time Status Last Admin Dose Admin Nitroglycerin 0.4 mg Q5MINP PRN SL 04/03/24 02:00 Morphine Sulfate 2 mg Q30M PRN IV 04/03/24 02:00 Azithromycin 250 ml @ 125 mls/hr DAILY IV 04/03/24 10:00 04/04/24 09:18 125 MLS/HR Ceftriaxone Sodium 50 ml @ 100 mls/hr DAILY@0100 IV 04/04/24 01:00 04/04/24 00:49 100 MLS/HR Prednisone 40 mg DAILY PO 04/03/24 10:00 04/04/24 09:19 40 MG Carvedilol 3.125 mg BID PO 04/03/24 10:00 04/04/24 09:19 3.125 MG Diagnostic Test (Pha) 1 strip ACHS 04/03/24 07:00 04/04/24 17:00 1 STRIP Insulin Human Regular ACHS SC 04/03/24 07:00 04/04/24 17:00 4 UNITS Dextrose 50 ml UD PRN IV 04/03/24 02:00 Iron Sucrose 110 ml @ 110 mls/hr DAILY@1200 IV 04/03/24 03:30 04/06/24 12:59 04/04/24 12:49 110 MLS/HR Ipratropium [place] 0.5 mg Q4HR NEB 04/03/24 18:00 04/04/24 14:36 0.5 MG Levalbuterol HCl 1.25 mg Q4H NEB 04/03/24 18:00 04/04/24 14:36 1.25 MG Oseltamivir Phosphate 75 mg Q12HR PO 04/04/24 22:00 04/09/24 21:59 Examination General Appearance: Cooperative. Well developed. Well nourished. NAD Head Exam: Normal inspection Neck Exam: Normal inspection. Non-tender. Normal alignment Pulmonary/Respiratory: Chest non-tender. Clear bilateral breath sounds, c rackles, trace wheezing. Cardiovascular/Chest: Regular rate and rhythm. No murmurs. No JVD. Peripheral Pulses: 2+ Radial (R). 2+ Radial (L). 2+ Pedal (R). 2+ Pedal (L) Abdominal Exam: Normal bowel sounds. Soft. normal abdomen, no visible veins, Nontender. No hepatospenomegaly. No masses Ankle Exam: Negative ankle edema Lower extremities: Negative lower extremity edema Neuro/Mental Status: A&O x4. Coherent. Thoughts/Psych: Normal thought pattern. Appropriate mood and affect. Good judgement and insight Skin Exam: Normal inspection. Normal color. Warm. Dry laboratory and microbiology Laboratory Tests 04/04/24 05:29 Test 04/04/24 05:29 Range/Units Serum Glucose 136 H 74-106 mg/dL Microbiology Date/Time Source Procedure Growth Status 04/03/24 17:45 Nose MRSA Screen - Final Complete 04/03/24 01:24 Blood Blood Culture - Preliminary NO GROWTH AFTER 24 HOURS OF INCUBATION. Resulted Labs and/or images reviewed: Labs reviewed by me, Image(s) reviewed by me Problem List/Assessment/Plan Problem List/Assessment/Plan Acute hypoxic respiratory failure due to influenza A infection COPD exacerbation - CXR: No acute disease - chest CT: No acute intrathoracic abnormality; pulmonary nodule fromCT in 2018 not visible in this current study - IV ceftriaxone, IV azithromycin - ipratropium and levalbuterol med nebs - prednisone 40 mg p.o. daily - oseltamivir 75mg Microcytic anemia, HB 6.8 at admission with MCV 56.4 - IV iron - s/p 1 PRBC History of atrial fibrillation Hypertension - carvedilol 3.125 mg p.o. b.i.d. - blood pressure on the softer side Type 2 diabetes, Hb A1c 7.2 - mild sliding scale insulin Goals of care: Full code, discussed for >16 minutes on 08/16/23 Plan discussed with patient Plan discussed with Dr. Fan Plan discussed with: Patient, Spouse, Daughter, Other (RN) My Orders My Orders Orders - MIKY COATS RESIDENT Procedure Category Date Status Time Oseltamivir 75mg PHA 04/04/24 In Process Capsule (Tamiflu 75mg 22:00 CC Plasma Assessment Blood Product Administration S: [id number] MIKY COATS RESIDENT Apr 04, 2024 19:07
[2024-04-04] MEDS: OSELTAMIVIR 75 MG CAP PO SCH (21:19)
[2024-04-05] VITALS (13 sets, daily range): BP systolic 116–141; BP diastolic 63–76; PULSE 71–98; RESP 15–20; TEMP 97.2–97.8; O2SAT 92–100
[2024-04-05 05:25] LABS: Basophils # (auto) 0 10 ^3/uL (0-0.2); Basophils % (auto) 0.3 % (0.0-2.0); Eosinophils # (auto) 0 10 ^3/uL (0-0.8); Hemoglobin 8.2 g/dL (13.5-17.5); Lymphocytes # (auto) 1.8 10 ^3/uL (0.4-5.4)
[2024-04-05 05:28] LABS: Eosinophils % (auto) 0.1 % (0.0-7.0); Hematocrit 27.6 % (41.0-53.0); Lymphocytes % (auto) 14.2 % (10.0-50.0); Mean Corpuscular Hemoglobin 17.6 pg (28.0-32.0); Mean Corpuscular Hgb Conc. 29.5 g/dL (32.0-36.0); Mean Corpuscular Volume 59.6 fL (80.0-100.0); Monocytes # (auto) 1.2 10 ^3/uL (0-1.3); Monocytes % (auto) 9.4 % (0.0-12.0); Neutrophils # (auto) 9.9 10 ^3/uL (1.6-8.6); Nucleated Red Blood Cells % 0.1 %; Platelet Count (auto) 314 10^3/uL (140-450); Red Blood Cells 4.64 10^6/uL (4.5-5.90)
[2024-04-05 05:31] LABS: Red Cell Distribution Width 22.3 % (11.8-14.3)
[2024-04-05 05:40] LABS: Chloride 102 mmol/L (98-107); Potassium 4.3 mmol/L (3.5-5.1)
[2024-04-05 05:41] LABS: Anion Gap 8 (5-15); Calcium 9.2 mg/dL (8.7-10.4); Carbon Dioxide 25 mmol/L (20-31)
[2024-04-05 05:46] LABS: BUN/Creatinine Ratio 16.7 (10.0-20.0); Blood Urea Nitrogen 17 mg/dL (9-23)
[2024-04-05 06:30] LABS: Glucose 122 mg/dL (74-106); Sodium 135 mmol/L (136-145)
--- NOTE | 2024-04-05 06:51 | DVHDSRES ---
Discharge Summary Date of Admission Resident Creating Document: MIKY COATS RESIDENT Apr 03, 2024 at 01:46 Date of Discharge: Apr 05, 2024 Admitting Diagnosis sob Labs/Diagnostic Data: Laboratory Results Test 04/05/24 06:07 04/05/24 05:05 04/04/24 19:59 04/03/24 19:23 POC Glucose 118 mg/dl (70-106) White Blood Count 13.0 10^3/uL (4.4-10.8) Red Blood Count 4.64 10^6/uL (4.5-5.90) Hemoglobin 8.2 g/dL (13.5-17.5) Hematocrit 27.6 % (41.0-53.0) Mean Corpuscular Volume 59.6 fL (80.0-100.0) Mean Corpuscular Hemoglobin 17.6 pg (28.0-32.0) Mean Corpuscular Hemoglobin Concent 29.5 g/dL (32.0-36.0) Red Cell Distribution Width 22.3 % (11.8-14.3) Platelet Count 314 10^3/uL (140-450) Mean Platelet Volume 8.2 fL (6.9-10.8) Neutrophils (%) (Auto) 76.0 % (37.0-80.0) Lymphocytes (%) (Auto) 14.2 % (10.0-50.0) Monocytes (%) (Auto) 9.4 % (0.0-12.0) Eosinophils (%) (Auto) 0.1 % (0.0-7.0) Basophils (%) (Auto) 0.3 % (0.0-2.0) Neutrophils # (Auto) 9.9 10 ^3/uL (1.6-8.6) Lymphocytes # (Auto) 1.8 10 ^3/uL (0.4-5.4) Monocytes # (Auto) 1.2 10 ^3/uL (0-1.3) Eosinophils # (Auto) 0 10 ^3/uL (0-0.8) Basophils # (Auto) 0 10 ^3/uL (0-0.2) Nucleated Red Blood Cells 0.1 % Sodium Level 135 mmol/L (136-145) Potassium Level 4.3 mmol/L (3.5-5.1) Chloride Level 102 mmol/L (98-107) Carbon Dioxide Level 25 mmol/L (20-31) Anion Gap 8 (5-15) Blood Urea Nitrogen 17 mg/dL (9-23) Creatinine 1.02 mg/dL (0.700-1.30) Glomerular Filtration Rate Calc 79 mL/min (>90) BUN/Creatinine Ratio 16.7 (10.0-20.0) Serum Glucose 122 mg/dL (74-106) Calcium Level 9.2 mg/dL (8.7-10.4) Stool Occult Blood Positive (Negative) Stool Occult Blood Sample #3 (Negative) Test 04/03/24 06:50 04/03/24 03:57 04/03/24 03:00 04/03/24 01:24 Influenza Type A Antigen Positive (Negative) Influenza Type B Antigen Negative (Negative) SARS-CoV-2 Antigen (Rapid) Negative (NEGATIVE) Reticulocyte Count (auto) 1.82 % (0.5-1.5) Prothrombin Time 12.9 sec (9.3-11.8) Prothrombin Time INR 1.24 (0.9-1.15) Fibrinogen 448 mg/dL (177-375) Hemoglobin A1c 7.2 % A1C (<5.7) Total Bilirubin 1.0 mg/dL (0.2-1.0) Aspartate Amino Transferase (AST) < 8 U/L (13-40) Alanine Aminotransferase (ALT) 13 U/L (7-40) Alkaline Phosphatase 72 U/L (46-116) Total Protein 6.8 g/dL (5.7-8.2) Albumin 4.5 g/dL (3.2-4.8) Thyroid Stimulating Hormone (TSH) 1.33 uIU/mL (0.55-4.78) Urine Color Light-yellow (Yellow) Urine Clarity Clear (Clear) Urine pH 5.5 (5.0-9.0) Urine Specific [place] 1.015 (1.001-1.035) Urine Protein Negative (Negative) Urine Ketones Negative (Negative) Urine Blood Negative /uL (Negative) Urine Nitrite Negative (Negative) Urine Bilirubin Negative (Negative) Urine Urobilinogen Normal mg/dL (Negative) Urine Leukocyte Esterase Negative /uL (Negative) Urine RBC 1 /hpf (0 - 3) Urine Microscopic WBC 1 /HPF (0-3) Urine Squamous Epithelial Cells Few /hpf (<5) Urine Bacteria None seen /hpf (None Seen) Urine Glucose Normal mg/dL (Normal) Urine Opiates Screen Neg (NEGATIVE) Urine Fentanyl Screen Pos (NEGATIVE) Urine Barbiturates Screen Neg (NEGATIVE) Urine Phencyclidine Screen Neg (NEGATIVE) Urine Amphetamines Screen Neg (NEGATIVE) Urine Benzodiazepines Screen Neg (NEGATIVE) Urine Cocaine Screen Neg (NEGATIVE) Urine Cannabinoids Screen Neg (NEGATIVE) Lactic Acid Level 1.2 mmol/L (0.4-2.0) Iron Level 15 ug/dL (65-175) Total Iron Binding Capacity 421 ug/dL (250-425) Percent Iron Saturation 3.6 % (20-55) Ferritin 3.1 ng/mL (22-322) Lactate Dehydrogenase 165 U/L (120-246) Vitamin B12 Level 494 pg/mL (211-911) Folic Acid 13.19 ng/mL (>5.38) Test 04/02/24 23:40 Platelet Estimate Adequate Hypochromasia (manual) Marked Poikilocytosis (manual) Slight Anisocytosis (manual) Slight Microcytosis Marked Target Cells Few Ovalocytes Few Troponin I High Sensitivity < 3 ng/L (</=54) B-Type Natriuretic Peptide 232.88 pg/mL (0-100) Other Laboratory Tests 04/05/24 05:05 Brief Hx & Hospital Course: Patient is a 68-year-old male with past medical history of COPD on home oxygen 2 L, atrial fibrillation, diabetes, hypertension, questionable CHF, who comes in due to shortness of breath that has been ongoing for the last 3 days. According to the patient, yesterday all day he experienced dyspnea, he tried using his nebulizer and home oxygen, however, did not help. Patient notes he had worsening shortness of breath and orthopnea which is what prompted this visit to the hospital. Patient also notes having increasing cough productive of yellowish sputum. Per patient he was treated for pneumonia in January and also has a history of MRSA pneumonia 6 years ago. In the ER patient was noted to have a hemoglobin of 6.8. Patient received 1 PRBC transfusion. Patient [place] positive for influenza B. Hospital course: Chest x-ray showed no acute disease, chest CT showed no acute intrathoracic abnormality; per Maryse nodule from CT in 2018 not visible on this current study. Patient was treated with IV ceftriaxone and IV azithromycin, along with ipratropium and albuterol med nebs. Patient was also given prednisolone 40 mg p.o. daily as well as oseltamivir 75 mg daily. For patient's microcytic anemia with Hb 6.8 at admission patient was given IV iron in 1 PRBC transfusion. Home medications carvedilol 3.125 mg was continued, however, Eliquis was held. Patient was also maintained on a mild sliding scale insulin. On the day of discharge, patient appeared well and had stable vital signs, patient was saturating within normal limits on room air and reported improvement in his symptoms. Patient was prescribed levofloxacin 750 mg once daily for 5 days, oseltamivir 75 mg twice daily for 3 days and prednisone 40 mg once daily for 2 days. His hospital course was uncomplicated. General Appearance: Cooperative. Well developed. Well nourished. NAD Head Exam: Normal inspection Neck Exam: Normal inspection. Non-tender. Normal alignment Pulmonary/Respiratory: Chest non-tender. Clear bilateral breath sounds, no crackles no wheezing. Cardiovascular/Chest: Regular rate and rhythm. No murmurs. No JVD. Peripheral Pulses: 2+ Radial (R). 2+ Radial (L). 2+ Pedal (R). 2+ Pedal (L) Abdominal Exam: Normal bowel sounds. Soft. normal abdomen, no visible veins, Nontender. No hepatospenomegaly. No masses Ankle Exam: Negative ankle edema Lower extremities: Negative lower extremity edema Neuro/Mental Status: A&O x4. Coherent. Thoughts/Psych: Normal thought pattern. Appropriate mood and affect. Good judgement and insight Skin Exam: Normal inspection. Normal color. Warm. Dry Condition at Discharge: Good Final Diagnosis/Problems List Acute hypoxic respiratory failure due to influenza infection COPD exacerbation Microcytic anemia History of atrial fibrillation Hypertension Type 2 diabetes, Hb A1c 7.2 Discharge Disposition: Home Discharge Instruct/Medications Diet: Consistent carbohydrate, Cardiac 2g Na,low cholest Activity: No Restrictions, As Tolerated Follow Up/Referral: Please follow up with PCP in 1-2 weeks Medications: Levofloxacin Oseltamivir Prednisone Discharge Statement: "Patient was advised to return to the ER or call 911 if any headaches, dizziness, shortness of breath, chest pain, abdominal pain, bleeding, fevers, or worsening of medical condition. Patient was counseled about treatment plan, medications, possible side effects, patientverbalized understanding. All questions were answered to the best of my ability. This discharge took greater then 30 minutes in planning, reviewing documentation, counseling the patient, and discussing with other team members." ASSESSMENT ASSESSMENT Assessment MIKY COATS RESIDENT Apr 05, 2024 06:51
[2024-04-05] MEDS ORDERED: OSEL75CA5 PO (10:26)
[2024-04-05] MEDS ORDERED: LEVO750T40 PO (10:26)
[2024-04-05] MEDS ORDERED: PRED20TA2 PO (10:26)
[2024-04-05 11:04] LABS: Hepatitis B Surface Antibody Negative (Negative); Hepatitis C Antibody Negative (Negative)
--- NOTE | 2024-04-05 14:18 | DVHSR ---
APPROVED REPORT EXAM: Two-dimensional and M-mode echocardiogram with Doppler and color Doppler. Blood Pressure: 111/67 mmHg INDICATION Rule out CHF RISK FACTORS Obesity: Height: 5'9", Weight: 240 DIMENSIONS LVDd4.1 (3.8-5.7cm)LA (2D)4.3 (1.9-4.0cm)Aortic Root3.8 (2.0-3.7cm) LVDs3.1 (2.5-4.0cm)LA (MM) (1.9-4.0cm)Aortic Cusp Exc1.3 (1.5-2.0cm) EF (%) 50.0 (55-70%)Rt. Atrium4.4 (1.9-4.0cm)Asc. Aorta cm IVSd1.1 (0.7-1.1cm)RV (D)4.4 (1.8-2.4cm) PWd1.2 (0.7-1.1cm) Mitral Valve MitralMitral Stenosis E wave1.30m/sMV Mean GR.mmHg E/A ratio0.02D MVAcm2 Aortic Valve Aortic ValveAortic Stenosis V11.10m/Tavo Mean GR.6mmHg V21.69m/Tavo Peak GR.11mmHg LVOT Diameter1.9 (1.8-2.4cm)Doppler AVA1.84cm2 Pulmonic Valve V21.14m/s Tricuspid Valve TR Velocity2.68m/s [id number] Other Information Technically limited study due to body habitus. Conclusion Technically difficult study. Sinus rhythm. Concentric LVH with biatrial enlargement. RV enlargement. Concentric LVH. Aortic root enlargement with dilation of the sinuses of Valsalva. Mild mitral annular calcification. Mild aortic sclerosis. Left ventricular function is preserved at 60% with normal RV function. Moderate tricuspid regurgitation. No pericardial effusion masses or vegetations discernible.
== END 2024-04-05 11:35 | disposition home or self-care (01) | DRG 193 ==
LOC: EDBD 23:32 → ER 23:32 → OVERFLOW 04-03 01:46 → TELE-EAST 04-03 15:12
PROVIDERS: ADMIT Student in an Organized Health Care Education/Training Program; ATTEND Student in an Organized Health Care Education/Training Program
PROC: 30233N1 Transfusion of Nonautologous Red Blood Cells into Peripheral Vein, Percutaneous Approach (ICD-10-PCS; principal; 2024-04-03)
DX: J10.1 Influenza due to other identified influenza virus with other respiratory manifestations (principal); J96.01 Acute respiratory failure with hypoxia; J44.1 Chronic obstructive pulmonary disease with (acute) exacerbation; N17.9 Acute kidney failure, unspecified; E87.1 Hypo-osmolality and hyponatremia; D64.9 Anemia, unspecified; E11.9 Type 2 diabetes mellitus without complications; E87.5 Hyperkalemia; I10 Essential (primary) hypertension; I48.91 Unspecified atrial fibrillation; D50.9 Iron deficiency anemia, unspecified; Z87.01 Personal history of pneumonia (recurrent); Z86.14 Personal history of Methicillin resistant Staphylococcus aureus infection; Z79.4 Long term (current) use of insulin; Z79.899 Other long term (current) drug therapy
CPT/HCPCS: 36415; 71045; 71250; 80048; 80053; 80307; 81001; 82270; 82607; 82728; 82746; 82962; 83036; 83540; 83550; 83605; 83615; 83880; 84443; 84484; 85025; 85045; 85384; 85610; 86706; 86803; 86850; 86900; 86901; 86920; 87040; 87081; 87426; 87804; 93005; 93306; 94640; 96365; 99291; G0378; J1756; J1815

== ENCOUNTER 2024-05-07 05:28 | Inpatient (IN) | payer MEDICARE ==
[~2024-05-07] VITALS: Ht 175.3 cm; Wt 106.2 kg
[2024-05-07] VITALS (14 sets, daily range): BP systolic 108–135; BP diastolic 44–68; PULSE 66–116; RESP 16–28; TEMP 97.7–98.5; O2SAT 93–100
[~2024-05-07 05:28] MED LIST changes: +AMLO1TAB22 PO; +ATOR10TA PO; +LEVO750T40 PO; +OSEL75CA5 PO; +PRED20TA2 PO; +SPIR25TA8 PO
--- NOTE | 2024-05-07 05:53 | ED.PDOC ---
History of Present Illness HPI Comments I, Dr. Kenney, [facility] this patient for SOB w/cough for 2x days, has the same thing, he vapes, speaks in full sentences, lungs clear, no pedal edema care will be assumed by oncoming physician Dr. Sorto. 68 year old male presents to the ED via EMS presents to the ED with a chief complaint of shortness of breath onset 2 days. Per EMS, patient was experiencing shortness of breath, cough for the past 2 days. Patient is on 2L O2 at home, was placed on 6L, breathing treatment was given en route. Upon ED arrival, patient is able to speak full sentences, symptoms have improved. PMHx DM, HTN, COPD, A- fib. Denies fever, chills, nausea, vomiting, diarrhea, chest pain. No other symptoms or modifying factors present at this time. Chief Complaint: Shortness of Breath Time Seen by MD: 06:00 Allergies: Coded Allergies: Tetracycline (Unverified Allergy, Unknown, 05/18/15) Home Meds Reported Medications Apixaban Base (ELIQUIS) 5 Mg Tab, 1 TAB PO BID 05/07/24 Atorvastatin Calcium (Lipitor) 10 Mg Tab, 1 TAB PO DAILY, #30 TAB 5 Refills 04/04/24 Spironolactone (Spironolactone) 25 Mg Tab, 1 TAB PO DAILY, #90 TAB 1 Refill 04/04/24 Amlodipine Besylate (Amlodipine Besylate) 5 Mg Tab, 5 MG PO DAILY for 30 Days, MG 04/04/24 Fluticasone-Salmeterol (Advair Diskus 500/50) 1 Puff Ih, 1 PUFF INH BID, #1 INHALER 5 Refills 05/18/15 Sitagliptin Phosphate (Januvia) 100 Mg Tab, 1 TAB PO DAILY, #30 TAB 5 Refills 05/18/15 Pantoprazole Sodium Sesquihydr (Protonix) 40 Mg Tab, 40 MG PO DAILY, #30 TAB 05/18/15 Metformin Hydrochloride (Metformin Hcl) 500 Mg Tab, 1 TAB PO BID, #60 TAB 3 Refills 05/18/15 Carvedilol (Carvedilol) 3.125 Mg Tab, 1 TAB PO BID, #60 TAB 3 Refills 05/18/15 Benazepril & Hydrochlorothiazi (Benazepril Hcl/Hydrochlor) 1 Tab Tab, 1 TAB PO DAILY, #30 TAB 5 Refills 05/18/15 Aspirin (Aspir-81) 81 Mg Tab, 1 TAB PO DAILY, #30 TAB 5 Refills 05/18/15 Discontinued Scripts Levofloxacin Hemihydrate (LEVOFLOXACIN) 750 Mg Tab, 1 TAB PO DAILY for 5 Days, #5 TAB Prov:[facility] 04/05/24 Oseltamivir Phosphate (Tamiflu) 75 Mg Cap, 1 CAP PO BID for 3 Days, #10 CAP Prov:[facility] 04/05/24 Prednisone (Prednisone) 20 Mg Tab, 40 MG PO DAILY for 2 Days, #5 MG Prov:[facility] 04/05/24 Information Source: Patient, Emergency Med Personnel Mode of Arrival: EMS Severity: Moderate Timing: Days Duration: Since onset Prehospital treatment: Breathing Tx, Oxygen Past Medical History PAST MEDICAL HISTORY: AFIB, COPD, DM, HTN Surgical History: Denies all surgeries Family History Family History: Unknown Social History Smoker: Other Alcohol: Denies ETOH Use Drugs: Denies Drug Use Lives In: Home Constitutional: denies: chills, diaphoresis, fatigue, fever, malaise, sweats, weakness, others EENTM: denies: blurred vision, double vision, ear bleeding, ear discharge, ear drainage, ear pain, ear ringing, eye pain, eye redness, hearing loss, mouth pain, mouth swelling, nasal discharge, nose bleeding, nose congestion, nose pain, photophobia, tearing, throat pain, throat swelling, voice changes, others Respiratory: reports: cough, shortness of breath; denies: hemoptysis, or thopnea, SOB at rest, SOB with excertion, stridor, wheezing, others Cardiovascular: denies: chest pain, dizzy spells, diaphoresis, Dyspnea on exertion, edema, irregular heart beat, left arm pain, lightheadedness, palpitations, PND, syncope, others Gastrointestinal: denies: abdomen distended, abdominal pain, blood streaked bowels, constipated, diarrhea, dysphagia, difficulty swallowing, hematemesis, melena, nausea, poor appetite, poor fluid intake, rectal bleeding, rectal pain, vomiting, others Genitourinary: denies: burning, dysuria, flank pain, frequency, hematuria, incontinence, penile discharge, penile sore, pain, testicle pain, testicle swelling, urgency, others Neurological: denies: dizziness, fainting, headache, left sided numbness, left sided weakness, numbness, paresthesia, pre-existing deficit, right sided numbness, right sided weakness, seizure, speech problems, tingling, tremors, weakness, others Musculoskeletal: denies: back pain, gout, joint pain, joint swelling, muscle pain, muscle stiffness, neck pain, others Integumetry: denies: bruises, change in color, change in hair/nails, dryness, laceration, lesions, lumps, rash, wounds, others Allergic/Immunocompromised: denies: Difficulty Healing, Frequent Infections, Hives, Itching, others Hematologic/Lymphatic: denies: anemia, blood clots, easy bleeding, easy bruising, swollen glands, others Endocrine: denies: excessive hunger, excessive sweating, excessive thirst, excessive urination, flushing, intolerance to cold, intolerance to heat, unexplained weight gain, unexplained weight loss, others Psychiatric: denies: anxiety, bipolar disorder, depression, hopeless, panic disorder, schizophrenia, sleepless, suicidal, others All Other Systems: Reviewed and Negative Physical Exam General Appearance: Moderate Distress, Normal HEENT: Normal ENT Inspection, Pharynx Normal, TMs Normal Neck: Full Range of Motion, Non-Tender, Normal, Normal Inspection Respiratory: Accessory Muscle Use, Chest Non-Tender, Respiratory Distress, Wheezing Cardiovascular: Irregular, No Edema, No JVD, No Murmur, No Gallop, Normal Peripheral Pulses, Tachycardia Breast Exam: Deferred Gastrointestinal: No Organomegaly, Non Tender, No Pulsatile Mass, Normal Bowel Sounds, Soft Genitalia: Deferred Pelvic: Deferred Rectal: Deferred Extremities: No calf tenderness, Normal capillary refill, Normal inspection, Normal range of motion, Non-tender, No pedal edema Musculoskeletal : Apperance: Normal Neurologic: Alert, home appraiser II-XII nml as Tested, No Motor Deficits, Normal Affect, Normal Mood, No Sensory Deficits Cerebellar Function: NOT DONE Reflexes: NOT DONE Skin: Dry, Normal Color, Warm Peripheral Pulses: 3+ Radial (R), 3+ Radial (L) Lymphatic: No Adenopathy Was a procedure done? Was a procedure done?: No Differential Dx Considerations may include: COPD Electrolyte imbalance X-Ray, Labs, Meds, VS Vital Signs Date Time Temp Pulse Resp B/P (MAP) Pulse Ox O2 Delivery O2 Flow Rate FiO2 05/07/24 10:00 109 25 115/64 (81) 94 05/07/24 09:00 88 21 109/56 (73) 94 05/07/24 08:00 84 21 108/44 (65) 95 05/07/24 08:00 92 05/07/24 07:18 Nasal Cannula* 4 36 05/07/24 07:18 98.5 94 20 96/63 (74) 98 98.5 05/07/24 06:12 24 99 Simple Mask* 7 N/A Venturi Mask 05/07/24 06:00 91 26 100 Nasal Cannula* 4 36 05/07/24 06:00 98.2 87 26 106/55 (72) 100 98.2 05/07/24 05:36 98.7 103 20 116/70 (85) 98 98.7 05/07/24 05:29 98 Lab Test 05/07/24 09:10 05/07/24 07:05 05/07/24 06:01 Range/Units Troponin I High Sensitivity 3 L < 3 L < 3 L </=54 ng/L White Blood Count 8.3 4.4-10.8 10^3/uL Red Blood Count 4.82 4.5-5.90 10^6/uL Hemoglobin 9.7 L 13.5-17.5 g/dL Hematocrit 31.0 L 41.0-53.0 % Mean Corpuscular Volume 64.3 L 80.0-100.0 fL Mean Corpuscular Hemoglobin 20.2 L 28.0-32.0 pg Mean Corpuscular Hemoglobin Concent 31.4 L 32.0-36.0 g/dL Red Cell Distribution Width 29.5 H 11.8-14.3 % Platelet Count 280 140-450 10^3/uL Mean Platelet Volume 8.4 6.9-10.8 fL Neutrophils (%) (Auto) 74.4 37.0-80.0 % Lymphocytes (%) (Auto) 10.4 10.0-50.0 % Monocytes (%) (Auto) 12.2 H 0.0-12.0 % Eosinophils (%) (Auto) 1.7 0.0-7.0 % Basophils (%) (Auto) 1.3 0.0-2.0 % Neutrophils # (Auto) 6.2 1.6-8.6 10 ^3/uL Lymphocytes # (Auto) 0.9 0.4-5.4 10 ^3/uL Monocytes # (Auto) 1.0 0-1.3 10 ^3/uL Eosinophils # (Auto) 0.1 0-0.8 10 ^3/uL Basophils # (Auto) 0.1 0-0.2 10 ^3/uL Nucleated Red Blood Cells 0.0 % Platelet Estimate Adequate Hypochromasia (manual) Marked Anisocytosis (manual) Marked Microcytosis Marked Ovalocytes Moderate Sodium Level 134 L 136-145 mmol/L Potassium Level 4.2 3.5-5.1 mmol/L Chloride Level 103 98-107 mmol/L Carbon Dioxide Level 24 20-31 mmol/L Anion Gap 7 5-15 Blood Urea Nitrogen 14 9-23 mg/dL Creatinine 1.25 0.700-1.30 mg/dL Glomerular Filtration Rate Calc 62 >90 mL/min BUN/Creatinine Ratio 11.2 10.0-20.0 Serum Glucose 138 H 74-106 mg/dL Calcium Level 9.0 8.7-10.4 mg/dL B-Type Natriuretic Peptide 211.11 0-100 pg/mL Current Medications Medications (Trade) Dose Ordered Sig/Héctor Route Start Time Stop Time Status Last Admin Albuterol (Ventolin Medneb) 5 mg ONCE ONCE NEB 05/07/24 06:00 05/07/24 06:01 DC 05/07/24 06:10 Ipratropium [place] (Atrovent Medneb) 0.5 mg ONCE ONCE NEB 05/07/24 06:00 05/07/24 06:01 DC 05/07/24 06:09 Methylprednisolone Sodium Succinate (Solu Medrol) 125 mg ONCE ONCE IV 05/07/24 06:15 05/07/24 06:16 DC 05/07/24 06:18 Patient alert. Complaining of shortness a breath. History of COPD. Placed on oxygen. Was given breathing treatment. BNP elevated. He is on oxygen at home. Was given breathing treatment. Was given steroid. Requiring more oxygen than normal. EKG reviewed does not show any acute process. History of AFib. Risk factors for coronary artery disease. Reviewed his history. Explained to the patient. Continue cardiac monitoring. [facility] [id number] [place] [id number] Ph: [phone] DIAGNOSTIC IMAGING Diagnostic Imaging Report : [id number] Signed PATIENT: CLOVER RYAN ACCT: [id number] UNIT: [id number] : 1955 LOC: ER ROOM / BED: / AGE / SEX: 68 / M ADM STATUS: REG ER SERVICE [id number] ORDERING PHYSICIAN: LILLY KENNEY MD PROCEDURE(s): CXRP - CHEST PORTABLE REASON: sob ORDER NUMBER(s): [id number], ACCESSION NUMBER(s): [id number] CHEST RADIOGRAPH Indication: sob Technique: Single frontal view of the chest was obtained Comparison: XY CHEST PORTABLE on DOS: 04/03/24 FINDINGS: Lines and Tubes: None Lungs: No focal consolidation. Pleura: No effusion. No pneumothorax. Cardiomediastinal contours: Unremarkable Bones: No acute osseous abnormality. IMPRESSION: 1. No acute cardiopulmonary disease. ATED BY: JOHN GOODRICH MD DICTATED DATE/TIME: 05/07/24627 SIGNED BY: JOHN GOODRICH MD SIGNED DATE/TIME: 05/07/24627 CC: Time of 1ST Reevaluation: 06:30 Reevaluation 1ST: Unchanged Patient Education/Counseling: Diagnosis, Treatment, Prognosis Family Education/Counseling: No Family Present Additional Information The following tests were ordered, and results were reviewed by me: TROP -x3, CBC, BNP, XY CHEST, BMP, EKG -x3, Additional Information was gathered from interviewing the following independent historians: EMS I reviewed and agreed with the following test results read by other providers: XY CHEST I discussed treatment and results with medical personnel and: Patient Comprehensive systems review obtained and negative except for what is stated in the HPI. Departure 1 Departure Time of Disposition: 06:36 Impression: Primary Impression: Acute respiratory failure Qualified Codes: J96.01 - Acute respiratory failure with hypoxia Additional Impressions: COPD exacerbation Atrial fibrillation Qualified Codes: I48.0 - Paroxysmal atrial fibrillation Disposition: ADMITTED INPATIENT Admit to: Med Surg Condition: Guarded Critical Care Note Critical Care Time?: Yes (90 min-critical care time only) Stability Stability form required: No Heart Score Heart Score: Heart Score Response (Comments) Value History Slightly Suspicious 0 EKG Normal 0 Age >65 2 Risk Factors >3 or Hx ASHD 2 Troponin Normal limit 0 Total 4 I personally scribed for BRITTANY SORTO MD ([email or web address]) on 05/07/24 at 05:53. Electronically submitted by Armando Sandoval ([email or web address]). I personally scribed for BRITTANY SORTO MD ([email or web address]) on 05/07/24 at 06:12. Electronically submitted by Andra Chandler ([email or web address]). I personally scribed for BRITTANY SORTO MD ([email or web address]) on 05/07/24 at 06:51. Electronically submitted by Andra Chandler ([email or web address]). I personally scribed for BRITTANY SORTO MD ([email or web address]) on 05/07/24 at 07:29. Electronically submitted by Andra Chandler ([email or web address]). BRITTANY SORTO MD May 07, 2024 05:53
[2024-05-07] MEDS: IPRATROPIUM BROM 0.5 MG/2.5ML INH SOL NEB ONE ×2 (06:09→06:15)
[2024-05-07] MEDS: ALBUTEROL SULF 2.5 MG/0.5ML(0.5%) NEB SOLN NEB ONE ×2 (06:10→06:15)
[2024-05-07] MEDS: methylPREDNISolone SOD SUCC 125 MG/2 ML VL IV ONE (06:18)
[2024-05-07 06:22] LABS: Chloride 103 mmol/L (98-107); Potassium 4.2 mmol/L (3.5-5.1)
[2024-05-07 06:23] LABS: Anion Gap 7 (5-15); Carbon Dioxide 24 mmol/L (20-31)
[2024-05-07 06:24] LABS: Sodium 134 mmol/L (136-145)
[2024-05-07 06:29] LABS: BUN/Creatinine Ratio 11.2 (10.0-20.0); Blood Urea Nitrogen 14 mg/dL (9-23)
[2024-05-07 06:30] LABS: Glucose 138 mg/dL (74-106)
--- NOTE | 2024-05-07 06:30 | DVH ---
CHEST RADIOGRAPH Indication: sob Technique: Single frontal view of the chest was obtained Comparison: XY CHEST PORTABLE on DOS: 04/03/24 FINDINGS: Lines and Tubes: None Lungs: No focal consolidation. Pleura: No effusion. No pneumothorax. Cardiomediastinal contours: Unremarkable Bones: No acute osseous abnormality. IMPRESSION: 1. No acute cardiopulmonary disease.
[2024-05-07 06:54] LABS: Basophils # (auto) 0.1 10 ^3/uL (0-0.2); Basophils % (auto) 1.3 % (0.0-2.0); Eosinophils # (auto) 0.1 10 ^3/uL (0-0.8); Eosinophils % (auto) 1.7 % (0.0-7.0); Hemoglobin 9.7 g/dL (13.5-17.5); Lymphocytes # (auto) 0.9 10 ^3/uL (0.4-5.4); Lymphocytes % (auto) 10.4 % (10.0-50.0); Mean Corpuscular Hemoglobin 20.2 pg (28.0-32.0); Mean Corpuscular Hgb Conc. 31.4 g/dL (32.0-36.0); Mean Corpuscular Volume 64.3 fL (80.0-100.0); Monocytes % (auto) 12.2 % (0.0-12.0); Neutrophils # (auto) 6.2 10 ^3/uL (1.6-8.6); Neutrophils % (auto) 74.4 % (37.0-80.0); Platelet Count (auto) 280 10^3/uL (140-450); Red Blood Cells 4.82 10^6/uL (4.5-5.90); White Blood Cell 8.3 10^3/uL (4.4-10.8)
[2024-05-07 06:57] LABS: Red Cell Distribution Width 29.5 % (11.8-14.3)
--- NOTE | 2024-05-07 07:31 | ECG ---
[facility] Test Date: 2024-05-07 Test Time: 05:29:58 Pat Name: CLOVER RYAN Department: ED Room: 0278T Gender: M Managed Care Provider: ED : 1955 Requested By: LILLY KENNEY Order Number: [id number] Reading MD: Riccardo Scott Measurements Intervals [place] Rate: 98 P: 0 DE: 0 QRS: 55 QRSD: 124 T: 15 QT: 373 QTc: 477 Interpretive Statements Atrial fibrillation Right bundle branch block Electronically Signed On 05-09-2024 22:05:55 PDT by Riccardo Scott Please click the below link to view image of tracing.
[2024-05-07 08:03] LABS: Platelet Estimate Adequate
[2024-05-07 08:04] LABS: Anisocytosis Marked; Hypochromia Marked; Ovalocytes MODERATE
[2024-05-07] MEDS ORDERED: APIX5TAB PO (10:25)
[2024-05-07] MEDS ORDERED: NITROGLYCERIN 0.4 MG SL TAB SL PRN (10:30)
[2024-05-07] MEDS ORDERED: ONDANSETRON HCL 4 MG/2 ML VIAL IV PRN (10:30)
[2024-05-07] MEDS ORDERED: DEXTROSE (50%) 50ML SYRG IV PRN (10:30)
[2024-05-07] MEDS ORDERED: DOCUSATE SOD 100 MG CAP PO PRN (10:30)
[2024-05-07] MEDS ORDERED: HYDROcodone-ACET 5/325MG TAB PO PRN (10:30)
[2024-05-07] MEDS ORDERED: ACETAMINOPHEN 325 MG TAB PO PRN (10:30)
[2024-05-07] MEDS ORDERED: MORPHINE SULFATE INJ 2 MG/ml SYRG IV PRN (10:30)
--- NOTE | 2024-05-07 10:35 | DVHHP2 ---
History of Present Illness Reason for Visit: Shortness of breath History of Present Illness Dipak Love is a 68-year-old male with past medical history of hypertension, hyperlipidemia, diabetes, COPD, home oxygen, sleep apnea, and atrial fibrillation who came in with complaints of shortness of breath. Patient states he his shortness of breath began about 2 days ago, and he has an associated cough with green sputum. Patient was seen in March for a similar complaint that he states he waited too long to be seen and he didn't want to do that again. He states he only uses his home oxygen as needed, he uses his CPAP machine with oxygen nightly, and he continues to vape. Denies any associated fever, chills, diaphoresis, nausea, vomiting, or diarrhea. Cardiovascular: AFIB, HTN, hyperipidemia Endocrine: Diabetes Review of Systems Constitutional: No: Fever, Chills, Sweats, Weakness, Malaise, Other Eyes: No: Pain, Vision change, Conjunctivae inflammation, Eyelid inflammation, Other, Redness ENT: No: Ear pain, Ear discharge, Nose pain, Nose discharge, Nose congestion, Mouth pain, Mouth swelling, Throat pain, Throat swelling, Other Respiratory: Cough, Shortness of breath, SOB with excertion, Wheezing, Sputum (green); No: Dry, Hemoptysis, Pleuritic Pain, Wheezing, Other Cardiovascular: No: Chest Pain, Palpitations, Orthopnea, Paroxysmal Noc. D yspnea, Edema, Lt Headedness, Other Gastrointestinal: No: Nausea, Vomiting, Abdominal Pain, Diarrhea, Constipation, Melena, Hematochezia, Other Genitourinary: No Dysuria, No Frequency, No Incontinence, No Hematuria, No Retention, No Other Musculoskeletal: No: other, neck pain, shoulder pain, arm pain, back pain, hand pain, leg pain, foot pain Skin: No: Rash, Lesions, Jaundice, Bruising, Other Neurological: No: Weakness, Numbness, Incoordination, Change in speech, Confusion, Seizures, Other Allergies: Coded Allergies: Tetracycline (Unverified Allergy, Unknown, 05/18/15) Medications Current Medications Medications Dose Ordered Sig/Héctor Route Start Time Stop Time Status Last Admin Dose Admin Diagnostic Test (Pha) 1 strip ACHS 05/07/24 11:30 UNV Insulin Human Regular HS SC 05/07/24 22:00 UNV Insulin Human Regular AC SC 05/07/24 11:30 UNV Dextrose 50 ml UD PRN IV 05/07/24 10:30 UNV Sodium Chloride 10 ml Q8HR IV 05/07/24 14:00 UNV Acetaminophen/ Hydrocodone Bitart 1 tab Q4HP PRN PO 05/07/24 10:30 UNV Ondansetron HCl 4 mg Q4HP PRN IV 05/07/24 10:30 UNV Docusate Sodium 100 mg BIDPRN PRN PO 05/07/24 10:30 UNV Acetaminophen 650 mg Q6HP PRN PO 05/07/24 10:30 UNV Nitroglycerin 0.4 mg Q5MINP PRN SL 05/07/24 10:30 UNV Exam Vital Signs Vital Signs Date Time Temp Pulse Resp B/P (MAP) Pulse Ox O2 Delivery O2 Flow Rate FiO2 05/07/24 08:00 84 21 108/44 (65) 95 05/07/24 07:18 Nasal Cannula* 4 36 05/07/24 07:18 98.5 98.5 General Appearance: Alert, Oriented X3, Cooperative, moderate distress HEENT: Atraumatic, PERRLA Respiratory: Other (Diminished breath sounds) Cardiovascular: Normal S1, Normal S2, Other (atrial fibrillation) Abdominal: Normal bowel sounds, Soft, No tenderness, No hepatospenomegaly Extremities: No clubbing, No cyanosis, No edema, Normal pulses Skin: No rashes, No breakdown, No significant lesion Neuro: Normal gait, Normal speech, Strength at 5/5 X4 ext, Normal tone Psych/Mental Status: Mental status NL, Mood NL Labs/Xrays Labs Test 05/07/24 09:10 05/07/24 06:01 Range/Units Troponin I High Sensitivity 3 L </=54 ng/L White Blood Count 8.3 4.4-10.8 10^3/uL Red Blood Count 4.82 4.5-5.90 10^6/uL Hemoglobin 9.7 L 13.5-17.5 g/dL Hematocrit 31.0 L 41.0-53.0 % Mean Corpuscular Volume 64.3 L 80.0-100.0 fL Mean Corpuscular Hemoglobin 20.2 L 28.0-32.0 pg Mean Corpuscular Hemoglobin Concent 31.4 L 32.0-36.0 g/dL Red Cell Distribution Width 29.5 H 11.8-14.3 % Platelet Count 280 140-450 10^3/uL Mean Platelet Volume 8.4 6.9-10.8 fL Neutrophils (%) (Auto) 74.4 37.0-80.0 % Lymphocytes (%) (Auto) 10.4 10.0-50.0 % Monocytes (%) (Auto) 12.2 H 0.0-12.0 % Eosinophils (%) (Auto) 1.7 0.0-7.0 % Basophils (%) (Auto) 1.3 0.0-2.0 % Neutrophils # (Auto) 6.2 1.6-8.6 10 ^3/uL Lymphocytes # (Auto) 0.9 0.4-5.4 10 ^3/uL Monocytes # (Auto) 1.0 0-1.3 10 ^3/uL Eosinophils # (Auto) 0.1 0-0.8 10 ^3/uL Basophils # (Auto) 0.1 0-0.2 10 ^3/uL Nucleated Red Blood Cells 0.0 % Platelet Estimate Adequate Hypochromasia (manual) Marked Anisocytosis (manual) Marked Microcytosis Marked Ovalocytes Moderate Sodium Level 134 L 136-145 mmol/L Potassium Level 4.2 3.5-5.1 mmol/L Chloride Level 103 98-107 mmol/L Carbon Dioxide Level 24 20-31 mmol/L Anion Gap 7 5-15 Blood Urea Nitrogen 14 9-23 mg/dL Creatinine 1.25 0.700-1.30 mg/dL Glomerular Filtration Rate Calc 62 >90 mL/min BUN/Creatinine Ratio 11.2 10.0-20.0 Serum Glucose 138 H 74-106 mg/dL Calcium Level 9.0 8.7-10.4 mg/dL B-Type Natriuretic Peptide 211.11 0-100 pg/mL CHEST RADIOGRAPH FINDINGS: Lines and Tubes: None Lungs: No focal consolidation. Pleura: No effusion. No pneumothorax. Cardiomediastinal contours: Unremarkable Bones: No acute osseous abnormality. IMPRESSION: 1. No acute cardiopulmonary disease. Assessment/Plan Assessment/Plan Assessment: Acute respiratory failure, COPD exacerbation, Hypoxemia, Hypertension, Atrial fibrillation, Hyperlipidemia, Plan: Admit to Tele, Breathing treatments, IV steroids, IV antibiotics, Accu checks Q AC&HS with sliding scale, Home medications reconciled, Plan discussed with: Patient My Orders Orders - MAURISIO PARTIDA Procedure Category Date Status Time Glucose Blood PHA 05/07/24 Transmitted (Accu-Chek Comfort 11:30 Bedtime Insulin Scale PHA 05/07/24 Transmitted 22:00 Moderate Insulin Ss PHA 05/07/24 Transmitted 11:30 Dextrose 50% Syringe PHA 05/07/24 Transmitted 10:30 Admit ADMIT 05/07/24 Transmitted 10:17 Code Status CODE 05/07/24 Transmitted 10:17 2 Gm Sodium Diet DIET 05/07/24 Transmitted Lunch Sodium Chloride Lock PHA 05/07/24 Transmitted (Saline Lock Ns) 14:00 Hydrocodone-Acet PHA 05/07/24 Transmitted 5/325mg Tab ([place] 10:[address] [facility] 05/07/24 Transmitted (Zofran) 10:30 Docusate [address]odium [facility] 05/07/24 Transmitted Capsule (Colace 10:30 Complete Blood Count LAB 05/08/24 Verified 04:00 Comprehensive LAB 05/08/24 Verified Metabolic Panel 04:00 Condition: Critical [facility] 05/07/24 Transmitted 10:17 Acetaminophen Tablet [facility] 05/07/24 Transmitted (Tylenol Tablet) 10:[address] [facility] 05/07/24 Transmitted Sublingual (Ntrostat 10:30 Morphine Sulf[address] [facility] 05/07/24 Transmitted Injection 10:30 Stat Ekg For Chest [facility] 05/07/24 Transmitted Pain 10:17 Notify Md Of Changes [facility] 05/07/24 Transmitted From Base 10:17 Automobile Drivers For [facility] 05/07/24 Transmitted 24 Hours 10:17 Emergency Dysrhythmia [facility] 05/07/24 Transmitted Protocol 10:17 Rhythm Strips Once [facility] 05/07/24 Transmitted Every Shift 10:17 Oxygen By Nasal RT 05/07/24 Transmitted Cannula 10:[address] [facility] 05/07/24 Transmitted Sod Succ (Solu Medrol 22:00 Ipratropium Medneb PH[facility] 05/07/24 Transmitted (Atrovent Medneb) 12:[address] Medneb [facility] 05/07/24 Transmitted (Ventolin Medneb) 12:00 Covid19 Antigen [facility] 05/07/24 Transmitted Rapid Influenza A&B LAB 05/07/24 Transmitted 10:17 Date of Service: May 07, 2024 Billing Provider: MAURISIO PARTIDA Common Visit Codes: [id number] INP/OBS CARE (MOD) MAURISIO PARTIDA May 07, 2024 10:35
[2024-05-07] MEDS: InsuLIN REG 1unit/0.01ml Soln (100units/ml) SC SCH ×2 (11:51→21:42)
[2024-05-07] MEDS: ACCU-CHEK COMFORT CURVE STRIP VI SCH (11:59)
[2024-05-07] MEDS: ALBUTEROL SULF 2.5 MG/0.5ML(0.5%) NEB SOLN NEB SCH ×2 (12:07→18:18)
[2024-05-07] MEDS: IPRATROPIUM BROM 0.5 MG/2.5ML INH SOL NEB SCH ×2 (12:07→18:18)
[2024-05-07 12:40] LABS: COVID19 ANTIGEN SOFIA FIA NEGATIVE (NEGATIVE); Rapid Influenza A Negative (Negative); Rapid Influenza B Negative (Negative)
[2024-05-07] MEDS: SODIUM CHLOR 0.9% PF (SALINE LOCK) 10ML VIAL/SYR IV SCH (14:00)
[2024-05-07] MEDS: AZITHROMYCIN 500MG/ 250ML 250 ML IV ONE (15:25)
[2024-05-07] MEDS: methylPREDNISolone SOD SUCC 40 MG/ML VL IV SCH (21:41)
[2024-05-07] MEDS: ATORVASTATIN 20 MG TAB PO SCH (21:43)
[2024-05-07] MEDS: APIXABAN 5 MG TAB PO SCH (21:43)
[2024-05-07] MEDS: CARVEDILOL 3.125 MG TAB PO SCH (21:44)
[2024-05-08] VITALS (20 sets, daily range): BP systolic 103–127; BP diastolic 57–72; PULSE 68–93; RESP 17–22; TEMP 97.4–98.3; O2SAT 93–100
[2024-05-08 06:32] LABS: Eosinophils # (auto) 0 10 ^3/uL (0-0.8); Hemoglobin 9.7 g/dL (13.5-17.5); Monocytes # (auto) 0.4 10 ^3/uL (0-1.3); Neutrophils # (auto) 7.7 10 ^3/uL (1.6-8.6); White Blood Cell 8.7 10^3/uL (4.4-10.8)
[2024-05-08 06:37] LABS: Basophils # (auto) 0 10 ^3/uL (0-0.2); Basophils % (auto) 0.4 % (0.0-2.0); Hematocrit 32.1 % (41.0-53.0); Lymphocytes # (auto) 0.5 10 ^3/uL (0.4-5.4); Lymphocytes % (auto) 6.2 % (10.0-50.0); Mean Corpuscular Hemoglobin 19.6 pg (28.0-32.0); Mean Corpuscular Hgb Conc. 30.2 g/dL (32.0-36.0); Monocytes % (auto) 4.6 % (0.0-12.0); Neutrophils % (auto) 88.8 % (37.0-80.0); Platelet Count (auto) 319 10^3/uL (140-450); Red Blood Cells 4.95 10^6/uL (4.5-5.90)
[2024-05-08 06:39] LABS: Alanine Aminotransferase 11 U/L (7-40); Albumin 4.4 g/dL (3.2-4.8); Alkaline Phosphatase 63 U/L (46-116); Anion Gap 8 (5-15); BUN/Creatinine Ratio 21.4 (10.0-20.0); Bilirubin, Total 0.8 mg/dL (0.2-1.0); Blood Urea Nitrogen 22 mg/dL (9-23); Calcium 9.2 mg/dL (8.7-10.4); Carbon Dioxide 23 mmol/L (20-31); Chloride 105 mmol/L (98-107); Potassium 4.2 mmol/L (3.5-5.1); Red Cell Distribution Width 29.2 % (11.8-14.3)
[2024-05-08 06:41] LABS: Aspartate Aminotransferase 8 U/L (13-40); Glucose 204 mg/dL (74-106); Sodium 136 mmol/L (136-145)
[2024-05-08 07:57] LABS: Anisocytosis Marked; Hypochromia Marked; Platelet Estimate Adequate
[2024-05-08 07:59] LABS: Stomatocytes Few
[2024-05-08 08:00] LABS: Ovalocytes MODE
[2024-05-08] MEDS: PANTOPRAZOLE 40 MG TAB PO SCH (08:56)
[2024-05-08] MEDS: AZITHROMYCIN 500MG/ 250ML 250 ML IV SCH (08:56)
[2024-05-08] MEDS: ASPirin-EC 81 mg tab PO SCH (08:56)
[2024-05-08] MEDS: amLODIPine BESYLATE 5 MG TAB PO SCH (08:58)
[2024-05-08] MEDS: SPIRONOLACTONE 25 MG TAB PO SCH (08:58)
[2024-05-08] MEDS: BENAZEPRIL PO SCH (09:09)
[2024-05-08] MEDS: HYDROCHLOROTHIAZI PO SCH (09:09)
[2024-05-08] MEDS: Sitagliptin Phosphate (Januvia) 100MG TABLET PO SCH (09:10)
[2024-05-08 09:15] LABS: % Iron Saturation 5.3 % (20-55)
[2024-05-08 09:28] LABS: Ferritin 10.6 ng/mL (22-322)
[2024-05-08 09:29] LABS: Folate (Folic Acid) 10.38 ng/mL (>5.38)
[2024-05-08] MEDS ORDERED: CARVEDILOL 3.125 MG TAB PO SCH (10:00)
[2024-05-08] MEDS: FUROSEMIDE 20 MG/2 ML VIAL IV SCH (10:33)
[2024-05-08] MEDS: INSULIN LANTUS (GLARGINE) 1 /0.01ml (100units/ml) SC SCH (10:38)
[2024-05-08] MEDS: IRON SUCROSE COMPLEX 110 ML IV SCH (11:40)
[2024-05-08] MEDS: ERGOCALCIFEROL 50,000 UNIT(1.25MG) CAP PO SCH (11:53)
[2024-05-08] MEDS: METOPROLOL SUCCINATE XL 50 MG TAB PO ONE (11:53)
--- NOTE | 2024-05-08 15:24 | DVHPNRES ---
Progress Note Date Seen: May 08, 2024 Resident Creating Document: RONIT MURDOCK RESIDENT Medical Necessity Reason Pt with a Central, PICC or Fol: No Subjective Review of Systems This is a 68-year-old male who came in with complaints of shortness of breath. PMH: AFIB, HTN, hyperipidemia, Diabetes, home o2 at 2lts Patient states he his shortness of breath began about 2 days ago, and he has an associated cough with green sputum. Patient was seen in March for a similar complaint that he states he waited too long to be seen and he didn't want to do that again. He states he only uses his home oxygen as needed, he uses his CPAP machine with oxygen nightly, and he continues to vape. Denies any associated fever, chills, diaphoresis, nausea, vomiting, or diarrhea. On my initial assessment, patient was seen and examined at bedside. He currently states feeling better than on admission, denies any significant chest pain, abdominal pain, dysuria, nausea, vomiting, diarrhea, constipation, dizziness, lightheadedness. He's currently tolerating diet. He states having mild sob and cough. Objective vital signs Vital Sign Date Time Temp Pulse Resp B/P (MAP) Pulse Ox O2 Delivery O2 Flow Rate FiO2 05/08/24 14:38 76 18 100 05/08/24 14:28 Nasal Cannula 2.0 05/08/24 14:28 28 05/08/24 13:00 97.5 103/57 (72) 97.5 Total Intake and Output 05/07/24 05/07/24 05/08/24 15:00 23:00 07:00 Intake Total 125 ml Output Total 325 ml 700 ml Balance -200 ml -700 ml medications Current Medications Medications Dose Ordered Sig/Héctor Route Start Time Stop Time Status Last Admin Dose Admin Diagnostic Test (Pha) 1 strip ACHS 05/07/24 11:30 05/08/24 11:46 1 STRIP Insulin Human Regular HS SC 05/07/24 22:00 05/07/24 21:42 3 UNITS Insulin Human Regular AC SC 05/07/24 11:30 05/08/24 11:45 3 UNITS Dextrose 50 ml UD PRN IV 05/07/24 10:30 Sodium Chloride 10 ml Q8HR IV 05/07/24 14:00 05/08/24 14:23 10 ML Acetaminophen/ Hydrocodone Bitart 1 tab Q4HP PRN PO 05/07/24 10:30 Ondansetron HCl 4 mg Q4HP PRN IV 05/07/24 10:30 Docusate Sodium 100 mg BIDPRN PRN PO 05/07/24 10:30 Acetaminophen 650 mg Q6HP PRN PO 05/07/24 10:30 Nitroglycerin 0.4 mg Q5MINP PRN SL 05/07/24 10:30 Morphine Sulfate 2 mg Q30M PRN IV 05/07/24 10:30 Methylprednisolone Sodium Succinate 40 mg BID IV 05/07/24 22:00 05/08/24 08:56 40 MG Aspirin 81 mg DAILY PO 05/08/24 10:00 05/08/24 08:56 81 MG Pantoprazole Sodium 40 mg DAILY PO 05/08/24 10:00 05/08/24 08:56 40 MG Spironolactone 25 mg DAILY PO 05/08/24 10:00 05/08/24 08:58 25 MG Atorvastatin Calcium 10 mg HS PO 05/07/24 22:00 05/07/24 21:43 10 MG Apixaban 5 mg BID PO 05/07/24 22:00 05/08/24 08:57 5 MG Azithromycin 250 ml @ 125 mls/hr DAILY IV 05/08/24 10:00 05/08/24 08:56 125 MLS/HR Albuterol 2.5 mg Q4HWA [facility] 05/07/24 18:00 05/08/24 14:28 2.5 MG Ipratropium [place] 0.5 mg Q4HWA [facility] 05/07/24 18:00 05/08/24 14:28 0.5 MG Insulin Glargine 20 units DAILY@1000 SC 05/08/24 10:00 05/08/24 10:38 20 UNITS Furosemide 20 mg DAILY IV 05/08/24 10:00 05/08/24 10:33 20 MG Iron Sucrose 110 ml @ 110 mls/hr DAILY@1200 IV 05/08/24 12:00 05/12/24 12:59 05/08/24 11:40 110 MLS/HR Ergocalciferol 50,000 unit Q7D PO 05/08/24 11:30 05/08/24 11:53 50,000 UNIT Metoprolol Succinate 25 mg DAILY PO 05/09/24 10:00 Examination Physical examination as below: General: Awake, alert, comfortable appearing, in no acute distress. HEENT: Head is normocephalic and atraumatic. Pupils are equal, round, and reactive to light. Extraocular muscles are intact. No nasal discharge. No facial trauma. Intraoral exam shows moist mucous membranes with no tonsillar enlargement or exudate. Neck: Supple with no cervical lymphadenopathy. Heart: Regular rate without murmur, rub, or gallop. Lungs: scattered crackles and wheezing Abdomen: No external sign of injury. Bowel sounds are present. Abdomen is soft, nontender. No rebound, no guarding, no rigidity. There are no palpable masses. There is no flank pain on exam. Extremities: Strong peripheral pulses. There is no clubbing, no cyanosis, and no edema. Skin: No rash. Neurologic: Cranial nerves II-XII intact without motor, sensory, or cerebellar deficit, no asterixis. laboratory and microbiology Laboratory Tests 05/08/24 06:07 Test 05/08/24 06:07 Range/Units Serum Glucose 204 H 74-106 mg/dL Labs and/or images reviewed: Labs reviewed by me, Image(s) reviewed by me Problem List/Assessment/Plan Problem List/Assessment/Plan Acute on chronic hypoxic respiratory failure, COPD exacerbation, Possible pneumonia, Gram-positive versus Gram-negative versus atypical Sleep apnea Hypertension, Atrial fibrillation, Hyperlipidemia, Acute on chronic diastolic CHF Obesity Anemia, moderate microcytic hypochromic Vitamin D deficiency Plan: DuoNebs q.4 hours while awake [place]aintian saturation at 88-92% Solu-Medrol 40 mg IV b.i.d. Azithromycin IV Pending sputum culture COVID and flu negative Continue eliquis 5mg po bid CPAP at night Metoprolol 25mg po qd Aldactone 25mg po qd Lasix 20mg iv qd Vitamin D 50,000 qweek IV iron Goals of care were discussed for over 30 minutes. FULL CODE. Case was discussed with Dr. Eli Plan discussed with: Patient, Other (RN) My Orders My Orders Orders - RONIT MURDOCK RESIDENT Procedure Category Date Status Time Insulin Lantus PHA 05/08/24 In Process (Glargine) (Lantus) 10:00 Urinalysis LAB 05/08/24 Logged 08:48 Respiratory Culture DELBERT 05/08/24 In Process W/ Gs 08:48 Furosemide Injection PHA 05/08/24 In Process (Lasix Injection) 10:00 Iron Sucrose Complex PHA 05/08/24 In Process (Venofer) 12:00 Ergocalciferol PHA 05/08/24 In Process (Vitamin D 50,000 11:30 Metoprolol Xl PHA 05/09/24 In Process Succinate (Toprol Xl) 10:00 Communication Order ORDERS 05/08/24 Verified 15:22 Date of Service: May 08, 2024 Billing Provider: TRACE ELI MD Common Visit Codes: [id number] INP/OBS CARE(HIGH) RONIT MURDOCK RESIDENT May 08, 2024 15:24 TRACE ELI MD May 08, 2024 18:32
[2024-05-08 16:44] LABS: Urine Bacteria None Seen /hpf (None Seen)
[2024-05-08 16:49] LABS: Urine Blood Negative /uL (Negative); Urine Clarity Clear (Clear); Urine Color Light-Yellow (Yellow); Urine Protein, UAD Negative (Negative); Urine Specific Gravity 1.011 (1.001-1.035); Urine Squamous Epithelial Cell None Seen /hpf (<5); Urine Urobilinogen Normal (Negative); Urine WBC < 1 /HPF (0-3); Urine pH 5.5 (5.0-9.0)
[2024-05-09] VITALS (9 sets, daily range): BP systolic 114–136; BP diastolic 63–79; PULSE 77–93; RESP 16–20; TEMP 97.2–97.6; O2SAT 93–100
[2024-05-09 07:28] LABS: Basophils # (auto) 0 10 ^3/uL (0-0.2); Basophils % (auto) 0.1 % (0.0-2.0); Eosinophils # (auto) 0 10 ^3/uL (0-0.8); Lymphocytes # (auto) 0.8 10 ^3/uL (0.4-5.4); Monocytes # (auto) 0.6 10 ^3/uL (0-1.3); Monocytes % (auto) 3.8 % (0.0-12.0)
[2024-05-09 07:32] LABS: Hematocrit 32.2 % (41.0-53.0); Hemoglobin 9.8 g/dL (13.5-17.5); Lymphocytes % (auto) 5.3 % (10.0-50.0); Mean Corpuscular Hemoglobin 19.7 pg (28.0-32.0); Mean Corpuscular Hgb Conc. 30.3 g/dL (32.0-36.0); Mean Corpuscular Volume 65.1 fL (80.0-100.0); Neutrophils # (auto) 13.9 10 ^3/uL (1.6-8.6); Neutrophils % (auto) 90.8 % (37.0-80.0); Platelet Count (auto) 366 10^3/uL (140-450); Red Blood Cells 4.95 10^6/uL (4.5-5.90); Red Cell Distribution Width 29.4 % (11.8-14.3); White Blood Cell 15.3 10^3/uL (4.4-10.8)
[2024-05-09 07:49] LABS: INR 1.15 (0.9-1.15); Partial Thromboplastin Time 30.6 SEC (24.5-34.5)
[2024-05-09 08:09] LABS: Chloride 101 mmol/L (98-107); Potassium 4.8 mmol/L (3.5-5.1)
[2024-05-09 08:10] LABS: Anion Gap 8 (5-15); Calcium 9.6 mg/dL (8.7-10.4); Carbon Dioxide 27 mmol/L (20-31)
[2024-05-09 08:11] LABS: Sodium 136 mmol/L (136-145)
[2024-05-09 08:15] LABS: BUN/Creatinine Ratio 20.6 (10.0-20.0); Blood Urea Nitrogen 22 mg/dL (9-23)
[2024-05-09 08:16] LABS: Magnesium 2.1 mg/dL (1.6-2.6)
[2024-05-09 08:20] LABS: Glucose 189 mg/dL (74-106)
[2024-05-09 09:17] LABS: Hypochromia Marked; Platelet Estimate Adequate
[2024-05-09 09:19] LABS: Anisocytosis Marked; Ovalocytes MODERATE
[2024-05-09] MEDS ORDERED: ERGO1CAP23 PO (09:37)
[2024-05-09] MEDS ORDERED: AZIT-43 PO (09:37)
[2024-05-09] MEDS ORDERED: PRED20TA2 PO (09:37)
[2024-05-09] MEDS: METOPROLOL SUCCINATE XL 50 MG TAB PO SCH (10:00)
--- NOTE | 2024-05-09 15:27 | DVHDSRES ---
Discharge Summary Date of Admission Resident Creating Document: RONIT MURDOCK RESIDENT May 07, 2024 at 10:17 Date of Discharge: May 09, 2024 Admitting Diagnosis Acute on chronic hypoxic respiratory failure Labs/Diagnostic Data: Laboratory Results Test 05/09/24 05:54 05/09/24 05:33 05/08/24 16:35 05/08/24 06:07 White Blood Count 15.3 10^3/uL (4.4-10.8) Red Blood Count 4.95 10^6/uL (4.5-5.90) Hemoglobin 9.8 g/dL (13.5-17.5) Hematocrit 32.2 % (41.0-53.0) Mean Corpuscular Volume 65.1 fL (80.0-100.0) Mean Corpuscular Hemoglobin 19.7 pg (28.0-32.0) Mean Corpuscular Hemoglobin Concent 30.3 g/dL (32.0-36.0) Red Cell Distribution Width 29.4 % (11.8-14.3) Platelet Count 366 10^3/uL (140-450) Mean Platelet Volume 8.5 fL (6.9-10.8) Neutrophils (%) (Auto) 90.8 % (37.0-80.0) Lymphocytes (%) (Auto) 5.3 % (10.0-50.0) Monocytes (%) (Auto) 3.8 % (0.0-12.0) Eosinophils (%) (Auto) 0.0 % (0.0-7.0) Basophils (%) (Auto) 0.1 % (0.0-2.0) Neutrophils # (Auto) 13.9 10 ^3/uL (1.6-8.6) Lymphocytes # (Auto) 0.8 10 ^3/uL (0.4-5.4) Monocytes # (Auto) 0.6 10 ^3/uL (0-1.3) Eosinophils # (Auto) 0 10 ^3/uL (0-0.8) Basophils # (Auto) 0 10 ^3/uL (0-0.2) Nucleated Red Blood Cells 0.0 % Platelet Estimate Adequate Hypochromasia (manual) Marked Anisocytosis (manual) Marked Microcytosis Marked Ovalocytes Moderate [place] Cells Few Schistocytes Few Prothrombin Time 12.0 sec (9.3-11.8) Prothrombin Time INR 1.15 (0.9-1.15) Activated Partial Thromboplast Time 30.6 SEC (24.5-34.5) Sodium Level 136 mmol/L (136-145) Potassium Level 4.8 mmol/L (3.5-5.1) Chloride Level 101 mmol/L (98-107) Carbon Dioxide Level 27 mmol/L (20-31) Anion Gap 8 (5-15) Blood Urea Nitrogen 22 mg/dL (9-23) Creatinine 1.07 mg/dL (0.700-1.30) Glomerular Filtration Rate Calc 75 mL/min (>90) BUN/Creatinine Ratio 20.6 (10.0-20.0) Serum Glucose 189 mg/dL (74-106) Calcium Level 9.6 mg/dL (8.7-10.4) Magnesium Level 2.1 mg/dL (1.6-2.6) POC Glucose 206 mg/dl (70-106) Urine Color Light-yellow (Yellow) Urine Clarity Clear (Clear) Urine pH 5.5 (5.0-9.0) Urine Specific [place] 1.011 (1.001-1.035) Urine Protein Negative (Negative) Urine Ketones Negative (Negative) Urine Blood Negative /uL (Negative) Urine Nitrite Negative (Negative) Urine Bilirubin Negative (Negative) Urine Urobilinogen Normal mg/dL (Negative) Urine Leukocyte Esterase Negative /uL (Negative) Urine RBC <1 /hpf (0 - 3) Urine Microscopic WBC < 1 /HPF (0-3) Urine Squamous Epithelial Cells None seen /hpf (<5) Urine Bacteria None seen /hpf (None Seen) Urine Glucose Normal mg/dL (Normal) Stomatocytes Few Iron Level 19 ug/dL (65-175) Total Iron Binding Capacity 359 ug/dL (250-425) Percent Iron Saturation 5.3 % (20-55) Ferritin 10.6 ng/mL (22-322) Total Bilirubin 0.8 mg/dL (0.2-1.0) Aspartate Amino Transferase (AST) 8 U/L (13-40) Alanine Aminotransferase (ALT) 11 U/L (7-40) Alkaline Phosphatase 63 U/L (46-116) Total Protein 7.0 g/dL (5.7-8.2) Albumin 4.4 g/dL (3.2-4.8) Vitamin B12 Level 530 pg/mL (211-911) Vitamin D 25-Hydroxy 22.7 ng/mL (30.0-100) Folic Acid 10.38 ng/mL (>5.38) Test 05/07/24 11:20 05/07/24 09:10 05/07/24 06:01 Influenza Type A Antigen Negative (Negative) Influenza Type B Antigen Negative (Negative) SARS-CoV-2 Antigen (Rapid) Negative (NEGATIVE) Troponin I High Sensitivity 3 ng/L (</=54) B-Type Natriuretic Peptide 211.11 pg/mL (0-100) Other Laboratory Tests 05/09/24 05:54 Brief Hx & Hospital Course: This is a 68-year-old male who came in with complaints of shortness of breath. PMH: AFIB, HTN, hyperipidemia, Diabetes, home o2 at 2lts Patient states he his shortness of breath began about 2 days ago, and he has an associated cough with green sputum. Patient was seen in March for a similar complaint that he states he waited too long to be seen and he didn't want to do that again. He states he only uses his home oxygen as needed, he uses his CPAP machine with oxygen nightly, and he continues to vape. Denies any associated fever, chills, diaphoresis, nausea, vomiting, or diarrhea. On my initial assessment, patient was seen and examined at bedside. He currently states feeling better than on admission, denies any significant chest pain, abdominal pain, dysuria, nausea, vomiting, diarrhea, constipation, dizziness, lightheadedness. He's currently tolerating diet. He states having mild sob and cough. Patient has a chest x-ray with demonstrated some interstitial opacities most prominent at the hilum. Patient continued to be on breathing treatments, Solu-Medrol, she was started on broad- spectrum antibiotics with azithromycin. Patient was also started on Lasix. A COVID and flu test were negative. Patient was restarted back on his home medications. We are able to wean down the oxygen of the patient is to his usual oxygen requirements. Patient states feeling much better than on admission, he currently denies any significant shortness of breath, chest pain, abdominal pain, nausea, vomiting. He is currently tolerating diet, ambulatory. General: Awake, alert, comfortable appearing, in no acute distress. HEENT: Head is normocephalic and atraumatic. Pupils are equal, round, and reactive to light. Extraocular muscles are intact. No nasal discharge. No facial trauma. Intraoral exam shows moist mucous membranes with no tonsillar enlargement or exudate. Neck: Supple with no cervical lymphadenopathy. Heart: Regular rate without murmur, rub, or gallop. Lungs: scattered crackles and wheezing, improved Abdomen: No external sign of injury. Bowel sounds are present. Abdomen is soft, nontender. No rebound, no guarding, no rigidity. There are no palpable masses. There is no flank pain on exam. Extremities: Strong peripheral pulses. There is no clubbing, no cyanosis, and no edema. Skin: No rash. Neurologic: Cranial nerves II-XII intact without motor, sensory, or cerebellar deficit, no asterixis. Patient will be discharge home, he will continue home medications as prescribed. He will continue taking azithromycin, prednisone, continue with his maintenance inhalers. He will follow-up with PCP in 1-2 weeks. Patient verbalized understanding and agree with the DC plan, we spent over 30 minutes explaining the plan. Case was discussed with Dr. Eli Operations or Procedures [place] [id number] Ph: [phone] DIAGNOSTIC IMAGING Diagnostic Imaging Report : [id number] Signed PATIENT: CLOVER RYAN ACCT: [id number] UNIT: [id number] : 1955 LOC: ER ROOM / BED: / AGE / SEX: 68 / M ADM STATUS: REG ER SERVICE [id number] ORDERING PHYSICIAN: LILLY KENNEY MD PROCEDURE(s): CXRP - CHEST PORTABLE REASON: sob ORDER NUMBER(s): [id number], ACCESSION NUMBER(s): [id number] CHEST RADIOGRAPH Indication: sob Technique: Single frontal view of the chest was obtained Comparison: XY CHEST PORTABLE on DOS: 04/03/24 FINDINGS: Lines and Tubes: None Lungs: No focal consolidation. Pleura: No effusion. No pneumothorax. Cardiomediastinal contours: Unremarkable Bones: No acute osseous abnormality. IMPRESSION: 1. No acute cardiopulmonary disease. ATED BY: JOHN GOODRICH MD DICTATED DATE/TIME: 05/07/24627 SIGNED BY: JOHN GOODRICH MD SIGNED DATE/TIME: 05/07/24627 CC: Condition at Discharge: Guarded Final Diagnosis/Problems List Acute on chronic hypoxic respiratory failure, COPD exacerbation, Possible pneumonia, Gram-positive versus Gram-negative versus atypical Sleep apnea Hypertension, Atrial fibrillation, Hyperlipidemia, Acute on chronic diastolic CHF Obesity Anemia, moderate microcytic hypochromic Vitamin D deficiency Discharge Disposition: Home Discharge Instruct/Medications Diet: Cardiac 2g Na,low cholest Activity: No Restrictions, As Tolerated Follow Up/Referral: fu with pcp in 1-2 weeks Medications: continue meds as prescribed Discharge Statement: "Patient was advised to return to the ER or call 911 if any headaches, dizziness, shortness of breath, chest pain, abdominal pain, bleeding, fevers, or worsening of medical condition. Patient was counseled about treatment plan, medications, possible side effects, patientverbalized understanding. All questions were answered to the best of my ability. This discharge took greater then 30 minutes in planning, reviewing documentation, counseling the patient, and discussing with other team members." ASSESSMENT ASSESSMENT Assessment COPD Exacerbation Date of Service: May 09, 2024 Billing Provider: TRACE ELI MD Common Visit Codes: [id number] DISCH DAY >30min RONIT MURDOCK RESIDENT May 09, 2024 15:27 TRACE ELI MD May 09, 2024 17:17
== END 2024-05-09 11:26 | disposition home or self-care (01) | DRG 177 ==
LOC: ER 05:28 → EDBD 05:28 → OVERFLOW 10:17 → TELE-WESTW 17:23
PROVIDERS: ADMIT Internal Medicine; ATTEND Internal Medicine
DX: J15.69 Pneumonia due to other Gram-negative bacteria (principal); I50.33 Acute on chronic diastolic (congestive) heart failure; J96.21 Acute and chronic respiratory failure with hypoxia; J44.1 Chronic obstructive pulmonary disease with (acute) exacerbation; J44.0 Chronic obstructive pulmonary disease with (acute) lower respiratory infection; Z20.822 Contact with and (suspected) exposure to COVID-19; E78.5 Hyperlipidemia, unspecified; E11.9 Type 2 diabetes mellitus without complications; F17.200 Nicotine dependence, unspecified, uncomplicated; J15.9 Unspecified bacterial pneumonia; I11.0 Hypertensive heart disease with heart failure; E55.9 Vitamin D deficiency, unspecified; D50.9 Iron deficiency anemia, unspecified; I48.91 Unspecified atrial fibrillation; E66.9 Obesity, unspecified; G47.30 Sleep apnea, unspecified; Z79.899 Other long term (current) drug therapy; Z68.34 Body mass index [BMI] 34.0-34.9, adult; Z79.82 Long term (current) use of aspirin; Z79.84 Long term (current) use of oral hypoglycemic drugs
CPT/HCPCS: 36415; 71045; 80048; 80053; 81001; 82306; 82607; 82728; 82746; 82962; 83540; 83550; 83735; 83880; 84484; 85025; 85610; 85730; 87070; 87205; 87426; 87804; 93005; 94640; 96365; 96375; 99291; G0378; J1756; J1815